=== PATIENT | female | born 1955 | race Caucasian/White ===

== ENCOUNTER 2017-11-28 18:35 | Inpatient (IN) ==
[2017-11-28] MEDS ORDERED: Naloxone 0.4 MG/ML INJ IVP PRN ×2 (19:31→21:37)
--- NOTE | 2017-11-28 21:23 | Internal Med History&Physical ---
<Martin Perez - Last Filed: 11/28/17 23:49> Date of Encounter: 11/28/17 Time of Encounter: 21:21 Internal Medicine - H&P: HPI Chief complaint: Melena Admitted From: Emergency Dept Plans for Post Hospital Care: Home History of present illness: Ms. 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 She states she had esophageal variceal banding done 5 days ago at [facility] and has had melanotic stools since then. She was supposed to follow-up on but was unable to make her appointment. She states this is new for her, she never had anything like this. She reports intermittent dizziness but denies near syncope or syncope. She states she has had occasional episodes of nausea. She reports weight gain in feeling that she has extra fluid on her belly. She has been told she has fluid in her belly previously but has never had paracentesis, this has always been treated with Lasix. She denies any abdominal pain, vomiting, hematemesis, hematochezia. Patient reports mild burning with urination. She denies any fever, chills, chest pain, shortness of breath. Past Med Surg Social Fam HX - Past Medical History Medical history: diabetes, hypertension Additional medical history: CIRRHOSIS. DEPRESSION. ANXIETY. ESOPHAGEAL VARICES. HTN. HIGH LIPIDS. DM II. GERD Psychiatric history: anxiety, depression - Past Surgical History Surgical History: cancer surgery, cholecystectomy, YOVANI/BSO Additional surgical history: T&A. UPPER AND LOWER SCOPES. FINGER CYST REMOVAL - Social History Smoking Status: Current every day smoker Smokeless Tobacco Status: No Alcohol use: occasionally Drug use: none Internal Medicine - H&P: Meds LORazepam [Ativan] 1 mg PO BID 11/01/15 [History] Valsartan/Hydrochlorothiazide [Diovan Hct 320-12.5 mg Tab] 0.5 tab PO DAILY 03/17 [History] Citalopram Hydrobromide [Citalopram HBr] 20 mg PO DAILY 05/19/17 [History] Pantoprazole Sodium 40 mg PO DAILY 05/19/17 [History] Relion N 45 units SQ BID 05/19/17 [History] Relion R 15 unit SQ TID PRN 05/19/17 [History] Loratadine [Allergy Relief] 10 mg PO DAILY 05/25/17 [History] SUMAtriptan succinate [Imitrex] 25 mg PO AD PRN 05/25/17 [History] Venlafaxine XR (24 HR) [Effexor XR] 150 mg PO DAILY 05/25/17 [History] 3 Allergy/AdvReac Type Severity Reaction Status Date / Time omeprazole [From Prilosec] Allergy Diarrhea Verified 05/19/17 09:47 tetanus and diphtheria Allergy Rash Verified 05/19/17 09:47 toxoids [Tetanus&Diphtheria Toxoid] All Systems PM: A 10-system review of systems was performed and is negative for pertinent findings except as documented above in the HPI. - Constitutional Constitutional: no chills, no fever(s), no falls - EENT Eyes: no blurry vision, no change in vision Nose, mouth and throat: no sinus pain, no sore throat - Cardiovascular Cardiovascular ROS IM: no chest pain, no dyspnea, no irregular heart rhythm, no lightheadedness, no syncope - Respiratory Respiratory: no cough, no dyspnea, no hemoptysis - Gastrointestinal Gastrointestinal: melena, nausea (occasional), no abdominal pain, no diarrhea, no hematemesis, no hematochezia, no vomiting - Genitourinary Genitourinary: dysuria - Musculoskeletal Musculoskeletal ROS IM: no muscle cramps - Integumentary Integumentary IM: no erythema, no rash - Neurological Neurological ROS: dizziness, no confusion - Endocrine Endocrine IM: no polydipsia, no polyuria - Constitutional General appearance: Present: A&O X 3, pleasant, no acute distress Exam: Able to walk from squad cot to bed without difficulty - Head Head exam: Present: atraumatic, normal inspection, normocephalic - Eye Eye exam: Present: EOMI, PERRL - ENT ENT exam: Present: mucous membranes moist - Neck Neck exam general surgery: Present: full ROM, supple - Respiratory Respiratory exam: Present: CTAB. Absent: rales, rhonchi, wheezes - Cardiovascular Cardiovascular exam: Present: tachycardia (regular). Absent: diastolic murmur, irregular rhythm, systolic murmur - GI/Abdominal GI/Abdominal exam: Present: distended, normal bowel sounds, soft, no peritoneal signs. Absent: tenderness Additional comments: Positive fluid wave. - Extremities Exam Extremities exam: Present: pedal edema (trace), warm. Absent: tenderness - Neurological Exam Neurological exam: Present: alert, CN II-XII intact, oriented X3, no focal deficits - Psychiatric Psychiatric exam: Present: anxious Internal Med - H&P Results - Labs CBC & Chem 7: 11/28/17 21:33 11/28/17 21:33 - Assessment and plan (1) Upper gastrointestinal hemorrhage Current Visit: No Status: Acute Assessment and plan: Patient reports melanotic stools 5 days after esophageal banding on Thursday. Most recent hemoglobin was in August was 11.3, was 9.5 on presentation. Trend CBC every 6 hours. Transfusion hemoglobin less than 7 for massive hemorrhage. Continue Protonix drip. Start octrotide with bolus followed by infusion. Given her GI bleed with hx of varicies will start ceftriaxone 1gm q24h for SBP prophylaxis. Gastroenterology has been consulted. (2) Cirrhosis Current Visit: Yes Status: Acute Assessment and plan: Secondary to nonalcoholic steatohepatitis. On exam patient appears to have mild ascites. We will hold Lasix at this time due to concern for active bleeding. Patient currently follows with [facility] and Dr. Alfaro. Patient states she is currently being evaluated for transplant. Child Padgett A, meld 11. GI has been consulted. Qualifiers: Hepatic cirrhosis type: other cirrhosis Qualified Code(s): K74.69 - Other cirrhosis of liver (3) Esophageal varices determined by endoscopy Current Visit: Yes Status: Acute Assessment and plan: Patient reports endoscopy 5 days ago to [facility] were 5 varices were banded. Was supposed to have follow-up appointment on that she was unable to make. The last endoscopy we have was from 2015 that showed grade 2 varices. We will attempt to obtain records from [facility]. (4) Hypertension Current Visit: Yes Status: Acute Assessment and plan: Currently normotensive. We will hold antihypertensives due to concerns for active bleeding and risk of hypotension. Qualifiers: Hypertension type: essential hypertension Qualified Code(s): I10 - Essential (primary) hypertension (5) Anxiety Current Visit: Yes Status: Acute Assessment and plan: Patient takes lorazepam 1 mg by mouth twice a day at home. Patient is currently nothing by mouth, will make lorazepam 0.5 mg every 8 available on an as-needed basis. (6) Type II diabetes mellitus Current Visit: Yes Status: Acute Assessment and plan: Patient is on 70/30 mix at home with short acting insulin for meals. She is currently nothing by mouth. We will check blood sugars every 6 and cover with sliding scale insulin. Qualifiers: Diabetes mellitus nursing home insulin use: with nursing home use Diabetes mellitus complication status: with unspecified complications Qualified Code(s) : E11.8 - Type 2 diabetes mellitus with unspecified complications; Z79.4 - intermediate (current) use of insulin (7) DVT prophylaxis Current Visit: Yes Status: Acute Assessment and plan: Pharmacologic contraindicated due to concern for active bleeding. We will order EPCDs (8) Dysuria Current Visit: Yes Status: Acute Assessment and plan: Patient reports mild dysuria. We will check UA. - Time Spent With Patient Total time spent is greater than 50% in coordination of care (as documented) at patient's floor/unit and/or counseling patient: <Tawny Tamayo - Last Filed: 11/29/17 07:43> Date of Encounter: 11/29/17 Time of Encounter: 01:00 Internal Medicine - H&P: HPI History of present illness: Ms. Reno is a 62 year old female All Systems PM: A 10-system review of systems was performed and is negative for pertinent findings except as documented above in the HPI. - Constitutional Vitals: Temp Pulse Resp BP Pulse Ox 98.3 F 102 18 128/69 96 11/29/17 07:34 11/29/17 07:34 11/29/17 07:34 11/29/17 07:34 11/29/17 07:34 Internal Med - H&P Results - Labs CBC & Chem 7: 11/29/17 03:13 11/29/17 03:13 Labs: Short CBC 11/28/17 11/29/17 Range/Units 21:33 03:13 WBC 3.9 L 2.9 L (4.3-11.1) K/mcL Hgb 10.0 L 9.1 L (11.5-15.4) g/dL Hct 32.2 L 29.4 L (35.3-44.9) % Plt Count 75 L 64 L (140-400) K/mcL Neutrophils # 2.9 2.0 (1.6-8.9) K/mcL BMP 11/28/17 11/29/17 21:33 03:13 Sodium 136 138 Potassium 4.1 4.2 Chloride 106 108 H Carbon Dioxide 26 26 BUN 23 21 Creatinine 0.96 0.84 Glucose 168 H 115 H Calcium 9.1 8.9 Liver Function 11/28/17 Range/Units 21:33 Total Bilirubin 1.6 H (0.3-1.0) mg/dL Direct Bilirubin 0.4 H (0.0-0.2) mg/dL AST 38 (13-39) Units/L ALT 21 (7-52) Units/L Alkaline Phosphatase 133 H (34-104) Units/L Albumin 3.4 L (3.5-5.7) g/dL Urine 11/28/17 Range/Units 23:39 Urine Color Yellow (Yellow) Urine Clarity Clear (Clear) Urine pH 6.0 (5.0-8.0) pH Units Ur Specific [place] 1.020 (1.010-1.025) Urine Protein Negative (Neg-Trace) mg/dL Urine Glucose (UA) Normal (Normal) mg/dL - Assessment and plan (1) Upper gastrointestinal hemorrhage Current Visit: No Status: Inactive (2) Cirrhosis Current Visit: Yes Status: Acute Qualifiers: Hepatic cirrhosis type: other cirrhosis Qualified Code(s): K74.69 - Other cirrhosis of liver (3) Esophageal varices determined by endoscopy Current Visit: Yes Status: Acute (4) Hypertension Current Visit: Yes Status: Acute Qualifiers: Hypertension type: essential hypertension Qualified Code(s): I10 - Essential (primary) hypertension (5) Anxiety Current Visit: Yes Status: Acute (6) Type II diabetes mellitus Current Visit: Yes Status: Acute Qualifiers: Diabetes mellitus nursing home admissions director insulin use: with nursing home use Diabetes mellitus complication status: with unspecified complications Qualified Code(s) : E11.8 - Type 2 diabetes mellitus with unspecified complications; Z79.4 - intermediate (current) use of insulin (7) DVT prophylaxis Current Visit: Yes Status: Acute (8) Dysuria Current Visit: Yes Status: Acute - Time Spent With Patient Total time spent is greater than 50% in coordination of care (as documented) at patient's floor/unit and/or counseling patient: - Attending Attestation Patient seen and examined. Case discussed with resident. Agree with assessment and plan. Patient hemodynamically stable. H/H stable. We will start patient on antibiotic prophylaxis due to suspicion for variceal bleed. Octreotide infusion. Serial h/h.
[2017-11-28 21:54] LABS: Basophils % 0.8 %; Red Cell Distribution Width 16.1 % (11.5-14.5)
[2017-11-28] MEDS ORDERED: Dextrose Gel 15 GM/37.5 ML TUBE PO PRN ×2 (21:54)
[2017-11-28] MEDS ORDERED: D5% in Water 1,000 ML IVC PRN (21:54)
[2017-11-28] MEDS ORDERED: *HR* Dextrose 50 % in Water (Syg) 50 ML SYRINGE IVP PRN (21:54)
[2017-11-28 21:55] LABS: Eosinophils # 0.1 K/mcL (0.0-0.6); Eosinophils % 3.3 %; Hematocrit 32.2 % (35.3-44.9); Immature Granulocytes % 0.3 % (0-4); Immature Platelets 5.1 % (1.1-6.1); Lymphocytes # 0.5 K/mcL (0.6-4.6); Lymphocytes % 11.8 %; Mean Corpuscular HGB Conc 31.1 g/dL (31.6-35.5); Mean Corpuscular Hemoglobin 27.4 pg (28.0-33.3); Mean Corpuscular Volume 88.2 fL (83.0-100.0); Mean Platelet Volume 10.6 fL (9.4-12.4); Monocytes # 0.4 K/mcL (0.0-1.3); Monocytes % 10.3 %; Neutrophils # 2.9 K/mcL (1.6-8.9); Red Blood Count 3.65 M/mcL (3.82-4.97); Segmented Neutrophils % 73.5 %
[2017-11-28] MEDS ORDERED: *HR* LORazepam 2 MG/ML VIAL IVP PRN (21:57)
[2017-11-28 21:58] LABS: Platelet Count 75 K/mcL (140-400)
[2017-11-28 22:03] LABS: Alanine Aminotransferase 21 Units/L (7-52); Albumin 3.4 g/dL (3.5-5.7); Alkaline Phosphatase 133 Units/L (34-104); Aspartate Amino Transferase 38 Units/L (13-39); BUN/Creatinine Ratio 24 (6-26); Bilirubin,Direct 0.4 mg/dL (0.0-0.2); Bilirubin,Indirect 1.2 mg/dL (0.0-1.2); Bilirubin,Total 1.6 mg/dL (0.3-1.0); Blood Urea Nitrogen 23 mg/dL (8-23); Calcium 9.1 mg/dL (8.6-10.3); Carbon Dioxide 26 mEq/L (23-29); Chloride 106 mEq/L (98-107); Globulin 3.4 g/dL (2.4-3.5); Glucose 168 mg/dL (70-105); Osmolality,Calculated 290 (280-300); Potassium 4.1 mEq/L (3.5-5.1); Sodium 136 mEq/L (136-145); Total Protein 6.8 g/dL (6.4-8.9); eGFR For Non-African Americans 59 (> 60)
[2017-11-28] MEDS: Pantoprazole 40 MG in 0.9 % Sodium Chloride Mini Bag 100 ML IVC SCH ×2 (22:58→23:46)
[2017-11-28] MEDS ORDERED: Octreotide 50 MCG/ML SYRINGE IVP ONE (23:24)
[2017-11-28] MEDS ORDERED: Octreotide 400 MCG in 0.9 % Sodium Chloride 100 ML IVC SCH (23:30)
[2017-11-28 23:45] LABS: Bilirubin,Urine Negative (Negative); Blood,Urine Negative (Negative); Clarity,Urine Clear (Clear); Color,Urine Yellow (Yellow); Glucose,Urine (UA) Normal (Normal); Ketones,Urine Negative (Negative); Leukocyte Esterase,Urine Small (Negative); Nitrite,Urine Negative (Negative); Protein,Urine Negative (Neg-Trace); Urobilinogen,Urine Normal (Normal)
[2017-11-28] MEDS ORDERED: cefTRIAXone 1,000 MG in 0.9 % Sodium Chloride Mini Bag 100 ML IVPB SCH (23:45)
[2017-11-28 23:46] LABS: Bacteria,Urine None Seen per hpf (None-Few); Hyaline Casts,Urine None Seen per lpf (None-Few); Squamous Epithelial Cell,Urine Many per lpf (None-Few); WBC,Urine 0-3 per hpf (0-3)
[2017-11-29 03:25] LABS: Basophils % 0.7 %; Eosinophils # 0.1 K/mcL (0.0-0.6); Eosinophils % 4.1 %; Hematocrit 29.4 % (35.3-44.9); Hemoglobin 9.1 g/dL (11.5-15.4); Immature Platelets 4.4 % (1.1-6.1); Lymphocytes # 0.4 K/mcL (0.6-4.6); Mean Corpuscular Hemoglobin 27.2 pg (28.0-33.3); Mean Corpuscular Volume 87.8 fL (83.0-100.0); Mean Platelet Volume 11.2 fL (9.4-12.4); Monocytes # 0.4 K/mcL (0.0-1.3); Monocytes % 11.9 %; Red Blood Count 3.35 M/mcL (3.82-4.97); Red Cell Distribution Width 16.1 % (11.5-14.5); Segmented Neutrophils % 68.3 %
[2017-11-29 03:28] LABS: INR 1.3; Prothrombin Time 14.3 Seconds (9.4-12.1)
[2017-11-29 03:33] LABS: Platelet Count 64 K/mcL (140-400)
[2017-11-29 03:42] LABS: BUN/Creatinine Ratio 25 (6-26); Blood Urea Nitrogen 21 mg/dL (8-23); Calcium 8.9 mg/dL (8.6-10.3); Carbon Dioxide 26 mEq/L (23-29); Chloride 108 mEq/L (98-107); Glucose 115 mg/dL (70-105); Magnesium 1.9 mg/dL (1.6-2.6); Osmolality,Calculated 290 (280-300); Potassium 4.2 mEq/L (3.5-5.1); Sodium 138 mEq/L (136-145); eGFR For Non-African Americans > 60 (> 60)
[2017-11-29] MEDS: Pantoprazole 40 MG in 0.9 % Sodium Chloride Mini Bag 100 ML IVC SCH ×5 (04:42→20:45)
[2017-11-29] MEDS ORDERED: Dextrose Gel 15 GM/37.5 ML TUBE PO PRN ×2 (04:50)
[2017-11-29] MEDS ORDERED: D5% in Water 1,000 ML IVC PRN (04:50)
[2017-11-29] MEDS ORDERED: *HR* Dextrose 50 % in Water (Syg) 50 ML SYRINGE IVP PRN (04:50)
[2017-11-29] MEDS ORDERED: *HR* LORazepam 2 MG/ML VIAL IVP PRN (04:50)
[2017-11-29] MEDS ORDERED: Naloxone 0.4 MG/ML INJ IVP PRN (04:50)
[2017-11-29] MEDS: Octreotide 400 MCG in 0.9 % Sodium Chloride 100 ML IVC SCH ×2 (05:01→20:47)
[2017-11-29] MEDS ORDERED: Insulin LISPRO 300 UNITS/3 ML VIAL SQ SCH ×3 (06:00→21:00)
[2017-11-29 08:20] LABS: Hematocrit 29.9 % (35.3-44.9); Hemoglobin 9.3 g/dL (11.5-15.4)
--- NOTE | 2017-11-29 08:33 | Anesthesia Evaluation PreOp ---
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 Being evaluated for possible liver transplant.), Diabetes Type II , GERD, Other (Underwent EGD/banding at [facility] 5 days ago. Has had melanotic stools cince.) Anesthesia History: No Prior Anesthetic Complications Alcohol Use: occasionally Drug use: none Medications and Allergies LORazepam [Ativan] 1 mg PO BID 11/01/15 [History] Citalopram Hydrobromide [Citalopram HBr] 20 mg PO DAILY 05/19/17 [History] Pantoprazole Sodium 40 mg PO DAILY 05/19/17 [History] Loratadine [Allergy Relief] 10 mg PO DAILY 05/25/17 [History] SUMAtriptan succinate [Imitrex] 25 mg PO AD PRN 05/25/17 [History] Venlafaxine XR (24 HR) [Effexor XR] 150 mg PO DAILY 05/25/17 [History] Furosemide [Lasix] 40 mg PO DAILY 11/29/17 [History] Insulin NPH Human Isophane [Novolin N] 45 unit SQ BID 11/29/17 [History] Insulin Regular, Human [Novolin R] 10 unit SQ TIDWM 11/29/17 [History] Spironolactone [Spironolactone] 100 mg PO DAILY 11/29/17 [History] 3 Allergy/AdvReac Type Severity Reaction Status Date / Time omeprazole [From Prilosec] Allergy Diarrhea Verified 05/19/17 09:47 tetanus and diphtheria Allergy Rash Verified 05/19/17 09:47 toxoids [Tetanus&Diphtheria Toxoid] - Meds/Allergy Pre-op Review Medications Reviewed: Yes Allergies Reviewed: Yes Beta Blockers on Current Med List: No Anesthesia Results - Labs 11/29/17 08:03 11/29/17 03:13 - Imaging EKG: report reviewed, image reviewed (sinus rhythm with RBBB and L ant. fasc. block) Anesthesia Exam Selected Entries 11/29/17 07:34 Temperature 98.3 F Pulse Rate 102 Respiratory Rate 18 Blood Pressure 128/69 O2 Sat by Pulse Oximetry 96 Laboratory Tests 11/29/17 11/29/17 11/29/17 03:13 03:13 03:13 Hgb 9.1 L Hct 29.4 L Plt Count 64 L PT 14.3 H INR 1.3 Sodium 138 Potassium 4.2 Chloride 108 H Carbon Dioxide 26 - HEENT Pupil (Motor): Pupils equal Mallampati: I Teeth: Edentulous Oral Opening: Greater than 3 (Discussed MAC anesthesia. Agreed to proceed.) - Cardiac Rhythm: Regular Murmur: None - Pulmonary Breath Sounds: bilateral Clear Respiratory Effort: Symmetrical Anesthesia Assess/Plan ASA Score: 4 Modified [place] Scale for Level of Consciousness: Cooperative, oriented, and tranquil Anesthetic Plan: MAC Monitoring Plan: Standard Monitors Recovery Plan: Other (Discussed MAC anesthesia, agreed to proceed.)
[2017-11-29] MEDS ORDERED: Lidocaine -MPF 2% 2 ML VIAL ONE (09:43)
[2017-11-29] MEDS ORDERED: *HR* Propofol 200 MG/20 ML VIAL IVP ONE (09:43)
[2017-11-29] MEDS: Ringers Solution, Lactated 1,000 ML IVC SCH (10:17)
--- NOTE | 2017-11-29 10:27 | Gastroenterology Consult Note ---
Date of Encounter: 11/29/17 Time of Encounter: 08:35 - Assessment and plan (1) Cirrhosis Status: Acute Qualifiers: Hepatic cirrhosis type: other cirrhosis Qualified Code(s): K74.69 - Other cirrhosis of liver (2) Esophageal varices determined by endoscopy Status: Acute - Time Spent With Patient Total time spent is greater than 50% in coordination of care (as documented) at patient's floor/unit and/or counseling patient: 25 - 35 minutes GI History of Present Illness - Data of Consult Patient: known to practice within the last 3 years Consult date: 11/29/17 Requesting Physician: Christiano Pace DO - Consult Narrative Reason for consult: Anemia and history of melena History of present illness: Ms. Reno is a 62 year old female who presented at [place] with hx of melena , shortness of breath and hx of esophageal varices. She had been banded most recently at [facility] (4 bands in September 2017). Hemoglobin was 9.5 gm% at [place] and 9.1 here. Plan EGD with banding of Eso varices today. Past Med Surg Social Fam HX - Past Medical History Medical history: cirrhosis, diabetes, GERD, GI bleed, hypertension, liver disease Additional medical history: CIRRHOSIS. DEPRESSION. ANXIETY. ESOPHAGEAL VARICES. HTN. HIGH LIPIDS. DM II. GERD Psychiatric history: anxiety, depression - Past Surgical History Surgical History: cancer surgery, cholecystectomy, YOVANI/BSO Additional surgical history: T&A. UPPER AND LOWER SCOPES. FINGER CYST REMOVAL - Social History Smoking Status: Current every day smoker Smokeless Tobacco Status: No Alcohol use: occasionally Drug use: none - Gastrointestinal Gastrointestinal: Present: melena - Constitutional Constitutional: as per HPI, fatigue - Cardiovascular Cardiovascular ROS: Present: as per HPI - Respiratory Respiratory IM: Present: dyspnea - Neurological ROS Neurological GI: Present: as per HPI - Integumentary Integumentary GI: Present: as per HPI - Psychiatric ROS Psychiatric GI: Present: as per HPI - Endocrine Endocrine IM: Present: as per HPI - Constitutional Vitals: Temp Pulse Resp BP Pulse Ox 98.3 F 100 18 121/76 97 11/29/17 07:34 11/29/17 10:16 11/29/17 10:16 11/29/17 10:16 11/29/17 10:16 - Head Head exam: Present: atraumatic, normal inspection, normocephalic - Eye Eye exam: Present: EOMI, PERRL Additional comments: Pallor - GI/Abdominal GI/Abdominal exam: Present: normal bowel sounds, soft, no peritoneal signs - Rectal Rectal exam: Present: heme (+) stool - Extremities Exam Extremities exam: Present: full ROM, normal inspection - Neurological Exam Neurological exam: Present: CN II-XII intact, oriented X3 Results - Labs CBC & Chem 7: 11/30/17 10:41 11/29/17 03:13 Labs: Last Result Calcium 8.9 mg/dL (8.6-10.3) 11/29/17 03:13 Entire Visit Hgb 9.3 g/dL (11.5-15.4) L 11/29/17 08:03 Hct 29.9 % (35.3-44.9) L 11/29/17 08:03 PT 14.3 Seconds (9.4-12.1) H 11/29/17 03:13 Total Bilirubin 1.6 mg/dL (0.3-1.0) H 11/28/17 21:33 AST 38 Units/L (13-39) 11/28/17 21:33 ALT 21 Units/L (7-52) 11/28/17 21:33 - ABG ABG results: PT/INR, D-dimer PT 14.3 Seconds (9.4-12.1) H 11/29/17 03:13 - Diagnostic Studies CT scan - abdomen Status: image reviewed by me Consult Discharge Plan - Plan Instructions: Cirrhosis (DC), Diabetes Mellitus Type 2 in Adults (DC), Chronic Hypertension (DC), Esophageal Varices (DC), Anxiety (DC) Referrals: Anant Amador MD [Partnered Physician] - (sent web request on 11-30-17 @ 0911) Chente Davis DO [Primary Care Provider] - (sent web request on 11-30-17 @ 0909)
--- NOTE | 2017-11-29 11:55 | Internal Med Progress Note ---
Hospitalist Progress Note - Encounter Date of Encounter: 11/29/17 Time of Encounter: 11:52 - Subjective Interval History: Patient is a 62 F with cirrhosis and varicies presented for melena. She had recent esophageal banding recently at [facility]. Patient has returned from EGD. She denies CP, SOB, dizziness, n/v, abdominal pain. States she is hungry. - Exam Vitals: Temp Pulse Resp BP Pulse Ox 98.3 F 100 18 121/76 97 11/29/17 07:34 11/29/17 10:16 11/29/17 10:16 11/29/17 10:16 11/29/17 10:16 Exam: Gen: NAD CVS: RRR Lungs: CTAB Abd: soft, nt/nd, normal bowel sounds, no rigidity, no guarding. Ext: trace bipedal edema. - Assessment and Plan (1) Upper gastrointestinal hemorrhage Current Visit: No Status: Inactive Assessment and Plan: Patient reports melanotic stools 5 days after esophageal banding on Thursday. Most recent hemoglobin was in August was 11.3, was 9.5 on presentation. Trend CBC every 6 hours. Transfusion hemoglobin less than 7 for massive hemorrhage. Continue Protonix drip. Start octrotide with bolus followed by infusion. Given her GI bleed with hx of varicies will start ceftriaxone 1gm q24h for SBP prophylaxis. Gastroenterology has been consulted. 11/29: status post EGD. Hemodynamically stable. No acute distress. Cycle H&H, appreciate GI recs. (2) Cirrhosis Current Visit: Yes Status: Acute Assessment and Plan: Secondary to nonalcoholic steatohepatitis. On exam patient appears to have mild ascites. We will hold Lasix at this time due to concern for active bleeding. Patient currently follows with [facility] and Dr. Alfaro. Patient states she is currently being evaluated for transplant. Child Padgett A, meld 11. GI has been consulted. (3) Esophageal varices determined by endoscopy Current Visit: Yes Status: Acute Assessment and Plan: Patient reports endoscopy 5 days ago to [facility] were 5 varices were banded. Was supposed to have follow-up appointment on that she was unable to make. The last endoscopy we have was from 2016 that showed grade 2 varices. We will attempt to obtain records from [facility]. 11/29: EGD done and patient just returned. GI following, appreciate recommendations. (4) Hypertension Current Visit: Yes Status: Acute Assessment and Plan: Currently normotensive. We will hold antihypertensives due to concerns for active bleeding and risk of hypotension. (5) Anxiety Current Visit: Yes Status: Acute Assessment and Plan: Patient takes lorazepam 1 mg by mouth twice a day at home. Patient is currently nothing by mouth, will make lorazepam 0.5 mg every 8 available on an as-needed basis. (6) Type II diabetes mellitus Current Visit: Yes Status: Acute Assessment and Plan: Patient is on 70/30 mix at home with short acting insulin for meals. Resume insulin since she now is eating. (7) DVT prophylaxis Current Visit: Yes Status: Acute Assessment and Plan: Pharmacologic contraindicated due to concern for active bleeding. We will order EPCDs (8) Dysuria Current Visit: Yes Status: Acute Assessment and Plan: Patient reports mild dysuria. We will check UA. - Time Spent with Patient Total time spent is greater than 50% in coordination of care (as documented) at patient's floor/unit and/or counseling patient: Internal Medicine: Result - Labs CBC & Chem 7: 11/29/17 08:03 11/29/17 03:13 Labs: Short CBC 11/28/17 11/29/17 11/29/17 Range/Units 21:33 03:13 08:03 WBC 3.9 L 2.9 L (4.3-11.1) K/mcL Hgb 10.0 L 9.1 L 9.3 L (11.5-15.4) g/dL Hct 32.2 L 29.4 L 29.9 L (35.3-44.9) % Plt Count 75 L 64 L (140-400) K/mcL Neutrophils # 2.9 2.0 (1.6-8.9) K/mcL BMP 11/28/17 11/29/17 21:33 03:13 Sodium 136 138 Potassium 4.1 4.2 Chloride 106 108 H Carbon Dioxide 26 26 BUN 23 21 Creatinine 0.96 0.84 Glucose 168 H 115 H Calcium 9.1 8.9 Liver Function 11/28/17 Range/Units 21:33 Total Bilirubin 1.6 H (0.3-1.0) mg/dL Direct Bilirubin 0.4 H (0.0-0.2) mg/dL AST 38 (13-39) Units/L ALT 21 (7-52) Units/L Alkaline Phosphatase 133 H (34-104) Units/L Albumin 3.4 L (3.5-5.7) g/dL Urine 11/28/17 Range/Units 23:39 Urine Color Yellow (Yellow) Urine Clarity Clear (Clear) Urine pH 6.0 (5.0-8.0) pH Units Ur Specific [place] 1.020 (1.010-1.025) Urine Protein Negative (Neg-Trace) mg/dL Urine Glucose (UA) Normal (Normal) mg/dL - ABG Interpretation ABG results: PT/INR, D-dimer PT 14.3 Seconds (9.4-12.1) H 11/29/17 03:13 Consult Discharge Plan - Plan Referrals: Chente Davis DO [Primary Care Provider] - (2) Cirrhosis Qualifiers: Hepatic cirrhosis type: other cirrhosis Qualified Code(s): K74.69 - Other cirrhosis of liver (4) Hypertension Qualifiers: Hypertension type: essential hypertension Qualified Code(s): I10 - Essential (primary) hypertension (6) Type II diabetes mellitus Qualifiers: Diabetes mellitus care home insulin use: with care home use Diabetes mellitus complication status: with unspecified complications Qualified Code(s) : E11.8 - Type 2 diabetes mellitus with unspecified complications; Z79.4 - residential (current) use of insulin
[2017-11-29] MEDS ORDERED: SUMAtriptan succinate 25 MG TABLET PO PRN (11:58)
[2017-11-29] MEDS: Insulin LISPRO 300 UNITS/3 ML VIAL SQ SCH ×2 (13:55→16:42)
[2017-11-29] MEDS: *HR* LORazepam 1 MG TABLET PO SCH (20:47)
[2017-11-29] MEDS ORDERED: cefTRIAXone 1,000 MG in 0.9 % Sodium Chloride Mini Bag 100 ML IVPB SCH (23:45)
[2017-11-30] MEDS: Pantoprazole 40 MG in 0.9 % Sodium Chloride Mini Bag 100 ML IVC SCH ×3 (02:28→08:18)
[2017-11-30 04:02] LABS: Mean Platelet Volume 10.6 fL (9.4-12.4)
[2017-11-30 04:03] LABS: Basophils % 1.1 %; Eosinophils # 0.1 K/mcL (0.0-0.6); Hematocrit 29.5 % (35.3-44.9); Immature Granulocytes % 0.5 % (0-4); Lymphocytes # 0.3 K/mcL (0.6-4.6); Lymphocytes % 16.8 %; Mean Corpuscular HGB Conc 30.5 g/dL (31.6-35.5); Mean Corpuscular Hemoglobin 26.9 pg (28.0-33.3); Mean Corpuscular Volume 88.3 fL (83.0-100.0); Monocytes # 0.3 K/mcL (0.0-1.3); Monocytes % 14.6 %; Neutrophils # 1.1 K/mcL (1.6-8.9); Red Blood Count 3.34 M/mcL (3.82-4.97); Red Cell Distribution Width 16.3 % (11.5-14.5)
[2017-11-30 04:17] LABS: Platelet Count 59 K/mcL (140-400)
[2017-11-30 05:47] LABS: Platelet Estimate Decreased (Normal)
[2017-11-30 05:48] LABS: Anisocytosis 1+ (Not Present)
[2017-11-30] MEDS: Ringers Solution, Lactated 1,000 ML IVC SCH (07:56)
[2017-11-30] MEDS: Insulin LISPRO 300 UNITS/3 ML VIAL SQ SCH ×2 (08:19→11:57)
[2017-11-30] MEDS: *HR* LORazepam 1 MG TABLET PO SCH (08:19)
[2017-11-30] MEDS ORDERED: Loratadine 10 MG TABLET PO SCH (09:00)
[2017-11-30] MEDS ORDERED: Furosemide 40 MG TABLET PO SCH (09:00)
[2017-11-30] MEDS ORDERED: Venlafaxine XR (24 HR) 150 MG CAP.ER.24H PO SCH (09:00)
--- NOTE | 2017-11-30 09:44 | Discharge Summary ---
- NOTES TO OUTPATIENT PROVIDER Notes to Outpatient Provider: - She is to Follow-up with GI as instructed in 4 weeks. - Repeat H&H in 3 days. - I highly suggest doing a sleep study as outpatient. Orders not resulted at time of discharge: Pending orders 12/01/17 04:00 Complete Blood Count [HEME] AM 0400 12/02/17 04:00 Complete Blood Count [HEME] AM 0400 12/03/17 04:00 Complete Blood Count [HEME] AM 0400 Date of Encounter: 11/30/17 Time of Encounter: 09:41 - Discharge Diagnosis (1) Upper gastrointestinal hemorrhage Priority: Primary Status: Inactive (2) Cirrhosis Priority: Secondary Status: Acute Qualifiers: Hepatic cirrhosis type: other cirrhosis Qualified Code(s): K74.69 - Other cirrhosis of liver (3) Esophageal varices determined by endoscopy Priority: Secondary Status: Acute (4) Hypertension Priority: Secondary Status: Acute Qualifiers: Hypertension type: essential hypertension Qualified Code(s): I10 - Essential (primary) hypertension (5) Anxiety Priority: Secondary Status: Acute (6) Type II diabetes mellitus Priority: Secondary Status: Acute Qualifiers: Diabetes mellitus shelter insulin use: with shelter use Diabetes mellitus complication status: with unspecified complications Qualified Code(s) : E11.8 - Type 2 diabetes mellitus with unspecified complications; Z79.4 - long term (current) use of insulin (7) DVT prophylaxis Priority: Secondary Status: Acute (8) Dysuria Priority: Secondary Status: Acute Hospital course: Ms. 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 She states she had esophageal variceal banding done 5 days ago at [facility] and has had melanotic stools since then. She was supposed to follow-up on but was unable to make her appointment. She states this is new for her, she never had anything like this. She reports intermittent dizziness but denies near syncope or syncope. She states she has had occasional episodes of nausea. She reports weight gain in feeling that she has extra fluid on her belly. She has been told she has fluid in her belly previously but has never had paracentesis, this has always been treated with Lasix. She denies any abdominal pain, vomiting, hematemesis, hematochezia. Patient reports mild burning with urination. Patient reports melanotic stools 5 days after esophageal banding on Thursday. Most recent hemoglobin was in August was 11.3, was 9.5 on presentation. Hemoglobin/Hematocrit were trended. She was started on a Protonix drip and Octreotide drip, and ceftriaxone as SBP prophylaxis. GI consulted and she had EGD on with esophageal banding. Patient remained hemodynamically stable and was discharged to follow-up with GI in 4 weeks. - Time Spent with Patient Total time spent providing and/or coordinating discharge services: - Discharge Medications Home Medications: LORazepam [Ativan] 1 mg PO BID 11/01/15 [History] Citalopram Hydrobromide [Citalopram HBr] 20 mg PO DAILY 05/19/17 [History] Pantoprazole Sodium 40 mg PO DAILY 05/19/17 [History] Loratadine [Allergy Relief] 10 mg PO DAILY 05/25/17 [History] SUMAtriptan succinate [Imitrex] 25 mg PO AD PRN 05/25/17 [History] Venlafaxine XR (24 HR) [Effexor Xr] 150 mg PO DAILY 05/25/17 [History] Furosemide [Lasix] 40 mg PO DAILY 11/29/17 [History] Insulin NPH Human Isophane [Novolin N] 45 unit SQ BID 11/29/17 [History] Insulin Regular, Human [Novolin R] 10 unit SQ TIDWM 11/29/17 [History] Spironolactone 100 mg PO DAILY 11/29/17 [History] Allergies/Adverse Reactions: 3 Allergy/AdvReac Type Severity Reaction Status Date / Time omeprazole [From Prilosec] Allergy Diarrhea Verified 05/19/17 09:47 tetanus and diphtheria Allergy Rash Verified 05/19/17 09:47 toxoids [Tetanus&Diphtheria Toxoid] Date of admission: 11/28/17 21:05 Primary care physician: Chente Davis DO Consults: 11/28/17 19:31 Consult to Gastroenterology [CONS] Routine Consulting Provider: [facility] [place] Reason for Consult: Upper GI, hx of varicies Call Completed: Yes Discharging clinician: Reva Carney - Constitutional Vitals: Temp Pulse Resp BP Pulse Ox 98.0 F 95 18 135/77 93 10/01/18 07:17 11/30/17 07:17 11/30/17 07:17 11/30/17 07:17 11/30/17 07:17 General appearance: Present: A&O X 3, pleasant, no acute distress Exam: Gen: NAD CVS: RRR Lungs: CTAB Abd: soft, nt/nd, normal bowel sounds, no rigidity, no guarding. Ext: trace bipedal edema. - Patient Status Disposition: Home, Self-Care Condition: Undetermined Functional capacity at discharge: independent ambulation Overall status at discharge: patient is progressing back to baseline - Discharge Instructions Follow Up With: Chente Davis DO [Primary Care Provider] - - Diet and Activity Activity: increase activity as tolerated Diet: advance to your usual diet
[2017-11-30 11:14] LABS: Hematocrit 29.5 % (35.3-44.9)
[2017-11-30 11:43] VITALS: BP 120/80
== END 2017-11-30 13:19 | disposition home or self-care (01) | DRG 369 ==
LOC: ICNU 21:05 → 2NNU 11-29 05:35
PROVIDERS: ADMIT Internal Medicine; ATTEND Internal Medicine

== ENCOUNTER 2018-06-28 16:16 | Inpatient (IN) ==
--- NOTE | 2018-06-28 16:35 | Emergency Department Note ---
Disposition Clinical Impression: NSTEMI (non-ST elevated myocardial infarction), Hyperammonemia Altered mental status Qualifiers: Altered mental status type: transient alteration of awareness Qualified Code(s): R40.4 - Transient alteration of awareness Disposition: Admitted As Inpatient Condition: Fair Forms: ED Satisfaction Letter Time of Disposition: 18:16 Altered Mental Status HPI - General Chief Complaint: ED Altered Mental Status Stated Complaint: AMS Time Seen by Provider: 06/28/18 16:23 Source: patient, family (), EMS Mode of arrival: EMS Limitations: no limitations Nursing Notes Reviewed: Yes Vital Signs Reviewed: Yes - History of Present Illness HPI Narrative: 63-year-old female history of liver cirrhosis, hypertension, diabetes presents to the emergency department via EMS for altered mental status and slurred speech. is also present. Patient is a resident at [facility]. She has been there for over the past several months after a fall resulting in hip and shoulder fracture. She states recently she is been having more discomfort in her extremities likely due to her physical therapy and typically it is treated with more pain medications. Patient and are not sure why they are here. EMS reports the nursing facility stated that she is more lethargic and had slurred speech. Her last well-known reportedly was at no on. On arrival here patient believes it is due to her pain medications as well as her just waking up that made her seen altered. She is completely with and answering questions appropriately. She also states that they recently checked her ammonia level which was 43. She denies any complaints at this time such as chest pain, shortness of breath, nausea, vomiting, headache, visual changes. At this time we will attempt to contact the nursing facility for further information. Her blood glucose per squad was 182. We will get a CT had labs a urine and ammonia level. MD complaint: altered mental status, decreased responsiveness - Related Data Home Medications Medication Instructions Recorded Confirmed Pantoprazole Sodium 20 mg PO DAILY@0730 05/19/17 04/14/18 Loratadine [Allergy Relief] 10 mg PO DAILY 05/25/17 04/14/18 SUMAtriptan succinate [Imitrex] 25 mg PO Q2H PRN 05/25/17 04/14/18 Venlafaxine XR (24 HR) [Effexor Xr] 150 mg PO DAILY 05/25/17 04/14/18 Furosemide [Lasix] 40 mg PO DAILY 11/29/17 04/14/18 Insulin NPH Human Isophane 45 unit SQ 0730,1630 11/29/17 04/14/18 [Novolin N] Insulin Regular, Human [Novolin R] 10 unit SQ TIDWM 11/29/17 04/14/18 Spironolactone 100 mg PO DAILY 11/29/17 04/14/18 Lactulose 45 ml PO BID 04/05/18 04/14/18 Propranolol [Inderal] 30 mg PO BID 04/05/18 04/14/18 Rifaximin [Xifaxan] 500 mg PO BID 04/05/18 04/14/18 Citalopram Hydrobromide 30 mg PO DAILY 04/06/18 04/14/18 [Citalopram HBr] Metoprolol [Lopressor] 12.5 mg PO BID 04/06/18 04/14/18 Cyclobenzaprine [Flexeril] 5 mg PO Q6H PRN 04/14/18 04/14/18 Previous Rx's Medication Instructions Recorded Rivaroxaban [Xarelto] 10 mg PO 1700 #25 tablet 04/09/18 Allergies Allergy/AdvReac Type Severity Reaction Status Date / Time tetanus and diphtheria Allergy Rash Verified 04/14/18 10:59 toxoids [Tetanus&Diphtheria Toxoid] omeprazole [From Prilosec] AdvReac Diarrhea Verified 04/14/18 13:48 All systems ED: reviewed and negative except as stated. Review of Systems: As Per HPI Constitutional: Denies: fever, chills ENT ED: Denies: congestion Cardiovascular: Denies: chest pain Respiratory: Reports: cough. Denies: dyspnea Gastrointestinal: Denies: abdominal pain, nausea, vomiting Genitourinary: Denies: urgency, dysuria Musculoskeletal: Reports: arthralgia Integumentary: Denies: rash, abrasion Neurological: Denies: headache, weakness, numbness, confusion Past Medical History - Past Medical History Attestation: Yes The following information was validated with the patient. Source: patient Medical history: Reports: cirrhosis, diabetes, GERD, GI bleed, hypertension, liver disease, other Surgical history: Reports: cancer surgery, cholecystectomy, YOVANI/BSO Psychiatric history: Reports: anxiety, depression - Social History Smoking Status: Former smoker Smokeless Tobacco Status: No Alcohol use: Reports: none Drug use: Reports: none Physical Exam - General Limitations: no limitations General appearance: alert, in no apparent distress, obese - Head Head exam: atraumatic, normocephalic, normal inspection - Eye Eye exam: Present: normal appearance, PERRL, EOMI. Absent: scleral icterus, nys tagmus - ENT ENT exam: normal exam, normal oropharynx, mucous membranes moist - Neck Neck exam: Present: normal inspection, full ROM, trachea midline - Chest Chest inspection: Present: normal inspection, symmetric chest wall rise. Absent: tenderness - Respiratory Respiratory exam: Present: normal lung sounds bilaterally. Absent: respiratory distress, wheezes - Cardiovascular Cardiovascular exam: Present: regular rate, normal rhythm, normal heart sounds - Abdominal Exam Abdominal exam: Present: soft (Obese), Non-Tender, normal bowel sounds. Absent: tenderness, distention, guarding, rebound, rigidity - Expanded Lower Extremity Exam Hip/Pelvis exam: Present: full ROM (Left hip limited due to prior fracture), external rotation, shortening, pelvis stable. Absent: tenderness - Neurological Exam Neurological exam: Present: alert, oriented X3 - Expanded Neurological Exam Patient oriented to: Present: person, place, time Speech: Present: fluid speech Cranial nerves: EOM function (II, III, IV, ): Normal, facial sensation (V): Normal, facial palsy (VII): Normal, gag reflex (IX): Normal, spinal accessory function (XI): Normal, tongue deviation (XII): Normal Motor strength - LUE: 5/5 Motor strength - RUE: 5/5 Motor strength - LLE: 5/5 Motor strength - RLE: 5/5 Upper motor neuron exam: maddie neglect: Absent bilaterally, pronator drift: Absent bilaterally Sensory exam upper extremity: light touch: Normal Sensory exam lower extremity: light touch: Normal Coma Scale Eye Opening: Spontaneous Coma Scale Motor Response: Obeys Commands Coma Scale Verbal Response: Oriented Coma Scale Total: 15 - Psychiatric Psychiatric exam: Present: normal affect, normal mood - Skin Skin exam: Present: warm, dry, intact, normal color. Absent: rash, cyanosis, diaphoresis Course Course Narrative: Patient presents with concerns of altered mental status and slurred speech. We are able to speak to the nursing facility and states she woke up and she was slurring her speech. This has resulted that this time during my examination. She is alert and oriented to person place and time. She is not displaying any neurologic focal deficits. She does have some slight decrease weakness in the left lower leg however she is had to fractures there in her hip. States she is also reporting a chronic cough that she is currently being treated with azithromycin. She otherwise feels her normal self at this time. Altered mental status workup initiated including CT head. - Reevaluation(s) Reevaluation #1: Troponin was significantly elevated 0.29. Her EKG showed some slight ST depression that was consistent with prior in April 2018. She is denying any chest pain at this time. She does report over the past several days she is been having midsternal chest pain that she described as heartburn. She is not having any pain at this moment. No history of cardiac ischemic disease. Her ammonia levels also elevated. This could suggest the explanation of her altered mental status. She would benefit admission and further evaluation for the elevated troponin/NSTEMI as well as further management of her cirrhosis. She does take lactulose and rifaximin. Patient will be admitted - Consultations Consultation #1: Spoke to the on-call immigration case worker Dr. Dukes who agrees with heparinization for elevated trop and history of CP the past few days. On her medical record it has Xarelto listed as a medication. Reviewing her prison facility medication list it is not listed. Patient states she is not taking any blood thinner specifically Xarelto. At this time no contraindications for heparin. She denies any G.I. bleed symptoms. Aspirin was given. Patient will be admitted for her altered mental status, elevated ammonia and NSTEMI Time: 18:12 Consultation #2: Spoke with on-call hospitalist kayce Delong to admit for AMS, elevated ammonia, NSTEMI. No further orders at this time Time: 18:41 Vital Signs Temperature 97.9 F 06/28/18 16:24 Pulse Rate 74 06/28/18 16:24 Respiratory Rate 18 06/28/18 16:24 Blood Pressure 101/52 06/28/18 16:24 O2 Sat by Pulse Oximetry 96 06/28/18 16:24 Temperature 97.9 F 06/28/18 16:24 Pulse Rate 78 06/28/18 17:54 Respiratory Rate 18 06/28/18 17:54 Blood Pressure 103/65 04/29/19 17:54 O2 Sat by Pulse Oximetry 95 06/28/18 17:54 Oxygen Delivery Oxygen Delivery Room Air Altered Mental Status - MDM Narrative Medical decision making narrative: Patient was discussed with my attending physician who agrees with ED management and final disposition. They independently evaluated the patient. Please refer to their attestation to this encounter for additional information. This note was generated by [employer] voice recognition software and as a result grammatical or spelling errors may occur using this program. - Medical Records Medical records reviewed: Yes I reviewed the patient's medical records. - Lab Data Lab results reviewed: Yes I reviewed the patient's lab results. Result diagrams: 06/28/18 18:04 06/28/18 16:51 Lab Results 06/28/18 06/28/18 06/28/18 Range/Units 16:51 16:51 16:51 WBC 4.7 (4.3-11.1) K/mcL RBC 3.75 L (3.82-4.97) M/mcL Hgb 10.3 L (11.5-15.4) g/dL Hct 34.5 L (35.3-44.9) % MCV 92.0 (83.0-100.0) fL MCH 27.5 L (28.0-33.3) pg MCHC 29.9 L (31.6-35.5) g/dL RDW 16.6 H (11.5-14.5) % Plt Count 90 L (140-400) K/mcL MPV 10.2 (9.4-12.4) fL Immature Gran % 0.4 (0-4) % Seg Neutrophils % 74.5 % Lymphocytes % 9.8 % Monocytes % 11.9 % Eosinophils % 2.8 % Basophils % 0.6 % Neutrophils # 3.5 (1.6-8.9) K/mcL Lymphocytes # 0.5 L (0.6-4.6) K/mcL Monocytes # 0.6 (0.0-1.3) K/mcL Eosinophils # 0.1 (0.0-0.6) K/mcL Basophils # 0.0 (0.0-0.2) K/mcL Platelet Estimate Decreased L (Normal) Immature Plt Fraction (1.1-6.1) % PT 15.4 H (9.4-12.1) Seconds INR 1.4 APTT 33.6 (26.0-36.0) Seconds Sodium 134 L (136-145) mEq/L Potassium 4.3 (3.5-5.1) mEq/L Chloride 99 (98-107) mEq/L Carbon Dioxide 33 H (23-29) mEq/L BUN 16 (8-23) mg/dL Creatinine 0.67 (0.60-1.20) mg/dL Est GFR ( Amer) > 60 (> 60) Est GFR (Non-Af Amer) > 60 (> 60) BUN/Creatinine Ratio 24 (6-26) Glucose 183 H (70-105) mg/dL Calculated Osmolality 284 (280-300) Calcium 8.8 (8.6-10.3) mg/dL Total Bilirubin 1.9 H (0.3-1.0) mg/dL Direct Bilirubin 0.7 H (0.0-0.2) mg/dL Indirect Bilirubin 1.2 (0.0-1.2) mg/dL AST 35 (13-39) Units/L ALT 19 (7-52) Units/L Alkaline Phosphatase 223 H (34-104) Units/L Ammonia (16-53) mcmol/L Troponin I 0.29 H* (< 0.04) ng/mL Serum Total Protein 7.3 (6.4-8.9) g/dL Albumin 2.7 L (3.5-5.7) g/dL Globulin 4.6 H (2.4-3.5) g/dL Albumin/Globulin Ratio 0.6 L (1.1-2.2) Urine Color (Yellow) Urine Clarity (Clear) Urine pH (5.0-8.0) pH Units Ur Specific [place] (1.010-1.025) Urine Protein (Neg-Trace) mg/dL Urine Glucose (UA) (Normal) mg/dL Urine Ketones (Negative) mg/dL Urine Blood (Negative) Urine Nitrite (Negative) Urine Bilirubin (Negative) Urine Urobilinogen (Normal) mg/dL Ur Leukocyte Esterase (Negative) Urine Microscopic RBC (0-3) per hpf Urine Microscopic WBC (0-3) per hpf Ur Squamous Epith Cells (None-Few) per lpf Urine Bacteria (None-Few) per hpf Hyaline Casts (None-Few) per lpf Ur Culture Indicated? (NO) 06/28/18 06/28/18 06/28/18 Range/Units 16:51 16:59 18:04 WBC 5.3 (4.3-11.1) K/mcL RBC 3.59 L (3.82-4.97) M/mcL Hgb 9.9 L (11.5-15.4) g/dL Hct 32.9 L (35.3-44.9) % MCV 91.6 (83.0-100.0) fL MCH 27.6 L (28.0-33.3) pg MCHC 30.1 L (31.6-35.5) g/dL RDW 16.6 H (11.5-14.5) % Plt Count 88 L (140-400) K/mcL MPV 9.8 (9.4-12.4) fL Immature Gran % (0-4) % Seg Neutrophils % % Lymphocytes % % Monocytes % % Eosinophils % % Basophils % % Neutrophils # (1.6-8.9) K/mcL Lymphocytes # (0.6-4.6) K/mcL Monocytes # (0.0-1.3) K/mcL Eosinophils # (0.0-0.6) K/mcL Basophils # (0.0-0.2) K/mcL Platelet Estimate (Normal) Immature Plt Fraction 2.4 (1.1-6.1) % PT (9.4-12.1) Seconds INR APTT (26.0-36.0) Seconds Sodium (136-145) mEq/L Potassium (3.5-5.1) mEq/L Chloride (98-107) mEq/L Carbon Dioxide (23-29) mEq/L BUN (8-23) mg/dL Creatinine (0.60-1.20) mg/dL Est GFR ( Amer) (> 60) Est GFR (Non-Af Amer) (> 60) BUN/Creatinine Ratio (6-26) Glucose (70-105) mg/dL Calculated Osmolality (280-300) Calcium (8.6-10.3) mg/dL Total Bilirubin (0.3-1.0) mg/dL Direct Bilirubin (0.0-0.2) mg/dL Indirect Bilirubin (0.0-1.2) mg/dL AST (13-39) Units/L ALT (7-52) Units/L Alkaline Phosphatase (34-104) Units/L Ammonia 54 H (16-53) mcmol/L Troponin I (< 0.04) ng/mL Serum Total Protein (6.4-8.9) g/dL Albumin (3.5-5.7) g/dL Globulin (2.4-3.5) g/dL Albumin/Globulin Ratio (1.1-2.2) Urine Color Yellow (Yellow) Urine Clarity Clear (Clear) Urine pH 7.0 (5.0-8.0) pH Units Ur Specific [place] 1.016 (1.010-1.025) Urine Protein Negative (Neg-Trace) mg/dL Urine Glucose (UA) Normal (Normal) mg/dL Urine Ketones Negative (Negative) mg/dL Urine Blood Negative (Negative) Urine Nitrite Negative (Negative) Urine Bilirubin Negative (Negative) Urine Urobilinogen 4.0 H (Normal) mg/dL Ur Leukocyte Esterase Trace H (Negative) Urine Microscopic RBC 0-3 (0-3) per hpf Urine Microscopic WBC 0-3 (0-3) per hpf Ur Squamous Epith Cells Moderate H (None-Few) per lpf Urine Bacteria None Seen (None-Few) per hpf Hyaline Casts None Seen (None-Few) per lpf Ur Culture Indicated? YES A (NO) - Radiology Data Radiology results reviewed: Yes I reviewed the patient's radiology results. Chest X-Ray 06/28/18 16:31 IMPRESSION: Moderate rotated exam to the left limits the overall evaluation. There is stable perihilar change which may represent chronic bronchitis/bronchiolitis. No acute pulmonary abnormality. D/ / 06/28/2018 16:56:17 Ruben Bolanos MD / [employer]old Interpreting Provider: Ruben Bolanos MD Head CT 06/28/18 16:31 IMPRESSION: No acute intracranial abnormality. Fungal sinusitis versus inspissated secretions. D/ / Ivan De Guzman MD / Ivan De Guzman MD Interpreting Provider: Ivan De Guzman MD - EKG Data EKG attestation: Yes I reviewed and interpreted this EKG. EKG results narrative: EKG performed 1627 normal sinus rhythm 77 beats per minute, left axis deviation, right bundle branch block, no ST elevation or depression. It is compared to prior EKG performed 04/14/2017 was similar consistent findings. No acute ischemic changes. TPA Checklist - Eligibilty for IV tPA 2. Clinical diagnosis of ischemic stroke causing deficit: No - LKW: 3-4.5 hrs Add. Warnings/Precautions Patient/family understanding: The patient/family members have been counseled and understood the risk, benefit, and alternatives of treatment.
--- NOTE | 2018-06-28 16:37 | Emergency Department Note ---
Disposition Clinical Impression: Altered mental status Qualifiers: Altered mental status type: transient alteration of awareness Qualified Code(s): R40.4 - Transient alteration of awareness Disposition: Still a Patient Forms: ED Satisfaction Letter General Adult HPI - General Chief complaint: ED Altered Mental Status Stated complaint: AMS Time Seen by Provider: 06/28/18 16:23 Source: patient, family (), EMS Mode of arrival: EMS Limitations: no limitations Nursing Notes Reviewed: Yes Vital Signs Reviewed: Yes - History of Present Illness HPI Narrative: ED ATTESTATION NOTE: I examined this patient and my medical decision-making was reviewed with the Resident Physician/TOTER/PA/Student. I have personally performed a face to face evaluation on this patient & I agree with the documented findings, disposition and treatment plan as described except to the extent set forth below. Patient was seen with emergency medicine resident Dr. Raffy Vaz please see copy of his note for details of this encounter Briefly: 61-year-old female brought in by EMS from custodial facility for altered mental status. Stated that she was not acting right and had slurred speech upon arrival she is awake and alert appropriate to give detailed history she stated she had pneumonia level drawn recently which was 43 And be contr ibuting to her issues. Patient is awake alert and cooperative and age of 1. Patient could a head CT screening labs EKG. Disposition pending. We will also contact the custodial facility to get a little more history Pain Scale: 0 - Related Data Home Medications Medication Instructions Recorded Confirmed Pantoprazole Sodium 20 mg PO DAILY@0730 05/19/17 04/14/18 Loratadine [Allergy Relief] 10 mg PO DAILY 05/25/17 04/14/18 SUMAtriptan succinate [Imitrex] 25 mg PO Q2H PRN 05/25/17 04/14/18 Venlafaxine XR (24 HR) [Effexor Xr] 150 mg PO DAILY 05/25/17 04/14/18 Furosemide [Lasix] 40 mg PO DAILY 11/29/17 04/14/18 Insulin NPH Human Isophane 45 unit SQ 0730,1630 11/29/17 04/14/18 [Novolin N] Insulin Regular, Human [Novolin R] 10 unit SQ TIDWM 11/29/17 04/14/18 Spironolactone 100 mg PO DAILY 11/29/17 04/14/18 Lactulose 45 ml PO BID 04/05/18 04/14/18 Propranolol [Inderal] 30 mg PO BID 04/05/18 04/14/18 Rifaximin [Xifaxan] 500 mg PO BID 04/05/18 04/14/18 Citalopram Hydrobromide 30 mg PO DAILY 04/06/18 04/14/18 [Citalopram HBr] Metoprolol [Lopressor] 12.5 mg PO BID 04/06/18 04/14/18 Cyclobenzaprine [Flexeril] 5 mg PO Q6H PRN 04/14/18 04/14/18 Previous Rx's Medication Instructions Recorded Rivaroxaban [Xarelto] 10 mg PO 1700 #25 tablet 04/09/18 Allergies Allergy/AdvReac Type Severity Reaction Status Date / Time tetanus and diphtheria Allergy Rash Verified 04/14/18 10:59 toxoids [Tetanus&Diphtheria Toxoid] omeprazole [From Prilosec] AdvReac Diarrhea Verified 04/14/18 13:48 Past Medical History - Past Medical History Medical history: Reports: cirrhosis, diabetes, GERD, GI bleed, hypertension, liver disease, other Surgical history: Reports: cancer surgery, cholecystectomy, YOVANI/BSO Psychiatric history: Reports: anxiety, depression - Social History Smoking Status: Former smoker Smokeless Tobacco Status: No Alcohol use: Reports: none Drug use: Reports: none Physical Exam - General Limitations: no limitations General appearance: alert, in no apparent distress Course Vital Signs Temperature 97.9 F 06/28/18 16:24 Pulse Rate 74 06/28/18 16:24 Respiratory Rate 18 06/28/18 16:24 Blood Pressure 101/52 06/28/18 16:24 O2 Sat by Pulse Oximetry 96 06/28/18 16:24 Temperature 97.9 F 06/28/18 16:24 Pulse Rate 74 06/28/18 16:24 Respiratory Rate 18 06/28/18 16:24 Blood Pressure 101/52 06/28/18 16:24 O2 Sat by Pulse Oximetry 96 06/28/18 16:24 Oxygen Delivery Oxygen Delivery Room Air
[2018-06-28 17:05] LABS: Basophils % 0.6 %; Eosinophils # 0.1 K/mcL (0.0-0.6); Eosinophils % 2.8 %; Hematocrit 34.5 % (35.3-44.9); Hemoglobin 10.3 g/dL (11.5-15.4); Immature Granulocytes % 0.4 % (0-4); Lymphocytes # 0.5 K/mcL (0.6-4.6); Lymphocytes % 9.8 %; Mean Corpuscular HGB Conc 29.9 g/dL (31.6-35.5); Mean Corpuscular Hemoglobin 27.5 pg (28.0-33.3); Mean Platelet Volume 10.2 fL (9.4-12.4); Monocytes # 0.6 K/mcL (0.0-1.3); Monocytes % 11.9 %; Neutrophils # 3.5 K/mcL (1.6-8.9); Red Blood Count 3.75 M/mcL (3.82-4.97); Red Cell Distribution Width 16.6 % (11.5-14.5); Segmented Neutrophils % 74.5 %
[2018-06-28 17:06] LABS: Platelet Count 90 K/mcL (140-400)
[2018-06-28 17:17] LABS: Bilirubin,Urine Negative (Negative); Blood,Urine Negative (Negative); Clarity,Urine Clear (Clear); Color,Urine Yellow (Yellow); Glucose,Urine (UA) Normal (Normal); Ketones,Urine Negative (Negative); Leukocyte Esterase,Urine Trace (Negative); Nitrite,Urine Negative (Negative); Protein,Urine Negative (Neg-Trace); Specific Gravity,Urine 1.016 (1.010-1.025)
[2018-06-28 17:18] LABS: INR 1.4; Prothrombin Time 15.4 Seconds (9.4-12.1)
[2018-06-28 17:20] LABS: Bacteria,Urine None Seen per hpf (None-Few); Hyaline Casts,Urine None Seen per lpf (None-Few); RBC,Urine 0-3 per hpf (0-3); Squamous Epithelial Cell,Urine Moderate per lpf (None-Few); WBC,Urine 0-3 per hpf (0-3)
[2018-06-28 17:21] LABS: Activated Partial Thrombo Time 33.6 Seconds (26.0-36.0)
[2018-06-28 17:31] LABS: Alanine Aminotransferase 19 Units/L (7-52); Albumin 2.7 g/dL (3.5-5.7); Albumin/Globulin Ratio 0.6 (1.1-2.2); Alkaline Phosphatase 223 Units/L (34-104); Aspartate Amino Transferase 35 Units/L (13-39); BUN/Creatinine Ratio 24 (6-26); Bilirubin,Direct 0.7 mg/dL (0.0-0.2); Bilirubin,Indirect 1.2 mg/dL (0.0-1.2); Bilirubin,Total 1.9 mg/dL (0.3-1.0); Blood Urea Nitrogen 16 mg/dL (8-23); Calcium 8.8 mg/dL (8.6-10.3); Carbon Dioxide 33 mEq/L (23-29); Chloride 99 mEq/L (98-107); Globulin 4.6 g/dL (2.4-3.5); Glucose 183 mg/dL (70-105); Osmolality,Calculated 284 (280-300); Potassium 4.3 mEq/L (3.5-5.1); Sodium 134 mEq/L (136-145); Total Protein 7.3 g/dL (6.4-8.9); Troponin I 0.29 ng/mL (< 0.04); eGFR For Non-African Americans > 60 (> 60)
[2018-06-28 17:50] LABS: Platelet Estimate Decreased (Normal)
[2018-06-28] MEDS ORDERED: *HR* Heparin 5,000 UNIT/ML VIAL IVP PRN (18:04)
[2018-06-28] MEDS ORDERED: *HR* Heparin 5,000 UNIT/ML VIAL IVP ONE (18:04)
[2018-06-28] MEDS ORDERED: Aspirin 325 MG TABLET PO ONE (18:11)
[2018-06-28 18:30] LABS: Hemoglobin 9.9 g/dL (11.5-15.4); Red Cell Distribution Width 16.6 % (11.5-14.5)
[2018-06-28 18:31] LABS: Hematocrit 32.9 % (35.3-44.9); Immature Platelets 2.4 % (1.1-6.1); Mean Corpuscular HGB Conc 30.1 g/dL (31.6-35.5); Mean Corpuscular Hemoglobin 27.6 pg (28.0-33.3); Mean Corpuscular Volume 91.6 fL (83.0-100.0); Mean Platelet Volume 9.8 fL (9.4-12.4); Red Blood Count 3.59 M/mcL (3.82-4.97)
[2018-06-28] MEDS: Heparin 25,000 UNIT/250 ML D5W 25,000 UNIT/250 ML IV.SOLN IVC SCH (18:44)
[2018-06-28 18:47] LABS: INR 1.4; Prothrombin Time 15.5 Seconds (9.4-12.1)
[2018-06-28] MEDS ORDERED: Naloxone 0.4 MG/ML INJ IVP PRN (21:19)
[2018-06-28] MEDS ORDERED: Ondansetron ODT 4 MG TAB.RAPDIS SL PRN (21:19)
[2018-06-28] MEDS ORDERED: D5% in Water 1,000 ML IVC PRN (21:22)
[2018-06-28] MEDS ORDERED: Dextrose Gel 15 GM/37.5 ML TUBE PO PRN ×2 (21:22)
[2018-06-28] MEDS ORDERED: *HR* Dextrose 50 % in Water (Syg) 50 ML SYRINGE IVP PRN (21:22)
[2018-06-28] MEDS ORDERED: Ipratropium/Albuterol Neb 3 ML IH PRN (21:30)
--- NOTE | 2018-06-28 21:54 | Internal Med History&Physical ---
<Lesile Jang - Last Filed: 06/28/18 23:36> Date of Encounter: 06/28/18 Time of Encounter: 21:00 Internal Medicine - H&P: HPI Chief complaint: AMS History of present illness: Ms. Reno is a 63 year old obese female with past medical history of cirrhosis suspected secondary to hepatic steatosis, diabetes mellitus, hypertension, anxiety and depression who was presented to the ED from her nursing facility after what was believed to be altered mental status. She is at the outside nursing facility for rehab after hip fracture in April. At the nursing facili ty she was believed to have lethargy subsequently resulting in her current addmission. Upon arrival to the ED she was alert and oriented x3. During discussion with the patient she reported the nursing staff likely assumed her to be altered to due her chronic daytime somlonece and culmination of her chronic pain medication and ativan. In the ED she was noted to have ammonia of 54 and troponin of 0.29 without any EKG changes and she denies chest pain. She was also noted to have elevated direct bilirubin and alkaline phosphatase but reports no abdominal pain. She is only complaining of chronic nasal congestion and reports was supposed to have surgical intervention last year but anesthesiology did not feel comfortable to proceed with surgical intervention. She denies any chest pain at this time. She also denies fever, chills, nausea, emesis, shortness of breath. Past Med Surg Social Fam HX - Past Medical History Medical history: cirrhosis, diabetes, GERD, GI bleed, hypertension, liver disease, other Additional medical history: CIRRHOSIS. DEPRESSION. ANXIETY. ESOPHAGEAL VARICES. HTN. HIGH LIPIDS. DM II. GERD. BRIONES Psychiatric history: anxiety, depression - Past Surgical History Surgical History: cancer surgery, cholecystectomy, YOVANI/BSO Additional surgical history: T&A. UPPER AND LOWER SCOPES. FINGER CYST REMOVAL. left femur. right total shoulder - Social History Smoking Status: Former smoker Smokeless Tobacco Status: No Alcohol use: none Drug use: none - Family History Father Hx Family GI Disorders: Yes (liver cirrhosis) Mother Hx Family Endocrine Disorder: Yes (diabetes ) Internal Medicine - H&P: Meds Citalopram [CeleXA] 20 mg PO 0800 06/28/18 [History] Furosemide [Lasix] 40 mg PO 0800 06/28/18 [History] Guaifenesin [Mucinex] 600 mg PO BID PRN 06/28/18 [History] Insulin NPH Human Isophane [Novolin N] 45 unit SQ 0800,199906/28/18 [History] Insulin Regular, Human [Novolin R] 10 unit IJ 0800,1200,1600 06/28/18 [History] Ipratropium/Albuterol Neb [Duoneb] 3 ml IH Q6HR 06/28/18 [History] LORazepam [Ativan] 1 mg PO BID PRN 06/28/18 [History] Lactobacillus Acidophilus [Acidophilus] 1 each PO 0800,199906/28/18 [History] Lactulose 20 gm PO 1200,1700 06/28/18 [History] Lactulose [Enulose] 30 gm PO 0800,199906/28/18 [History] Loratadine [Allergy Relief] 10 mg PO 0800 06/28/18 [History] Melatonin 5 mg PO 199906/28/18 [History] Metoprolol [Lopressor] 12.5 mg PO BID 06/28/18 [History] Oxycodone HCl 5 mg PO Q4H PRN 06/28/18 [History] Pantoprazole Sodium [Protonix] 20 mg PO 199906/28/18 [History] Propranolol [Inderal] 10 mg PO 0800,1600 06/28/18 [History] Propranolol [Inderal] 20 mg PO 0800,1600 06/28/18 [History] Rifaximin [Xifaxan] 550 mg PO 0800,199906/28/18 [History] SUMAtriptan succinate [Imitrex] 25 mg PO QID PRN 06/28/18 [History] Spironolactone [Aldactone] 100 mg PO 0800 06/28/18 [History] Venlafaxine HCl [Venlafaxine HCl ER] 150 mg PO 0800 06/28/18 [History] Allergy/AdvReac Type Severity Reaction Status Date / Time tetanus and diphtheria Allergy Rash Verified 06/28/18 22:45 toxoids [Tetanus&Diphtheria Toxoid] omeprazole [From Prilosec] AdvReac Diarrhea Verified 06/28/18 22:45 All Systems PM: A 10-system review of systems was performed and is negative for pertinent findings except as documented above in the HPI. - Constitutional Constitutional: no chills, no fever(s), no falls, no weakness - EENT Eyes: no blurry vision, no change in vision, no loss of vision, no pain Nose, mouth and throat: nasal congestion, sinus pressure, no dysphagia, no odynophagia - Cardiovascular Cardiovascular ROS IM: no chest pain, no dyspnea, no dyspnea on exertion, no palpitations - Respiratory Respiratory: no cough, no dyspnea, no dyspnea on exertion, no pain on inspiration, no chest congestion - Gastrointestinal Gastrointestinal: no abdominal pain, no dysphagia, no nausea, no vomiting - Genitourinary Genitourinary: no difficulty urinating, no dysuria, no hematuria - Musculoskeletal Musculoskeletal ROS IM: no myalgias, no numbness, no tingling - Integumentary Integumentary IM: no erythema, no pruritus, no rash, no jaundice - Neurological Neurological ROS: no confusion, no focal weakness, no numbness, no paresthesias - Psychiatric Psychiatric: anxiety, depression, no suicidal ideation - Constitutional Vitals: Temp Pulse Resp BP Pulse Ox 98.5 F 85 18 120/64 94 06/28/18 20:32 06/28/18 20:32 06/28/18 20:32 06/28/18 20:32 06/28/18 20:32 Exam: Gen: Vitals noted. No acute distress. Appears comfortable. Eyes: anicteric sclerae, moist conjunctivae; no lid-lag; Pupils equal and reactive to light HENT: Atraumatic; oropharynx clear with moist mucous membranes and no mucosal ulcerations; normal hard and soft palate, no teeth or dentures Neck: Trachea midline; supple, no thyromegaly or lymphadenopathy Cardiac: RRR, no murmur, +S1/S2. No JVD noted. Pulmonary: CTA bilaterally, rales or rhonchi, equal chest expansion, diffuse wheezing of all lung lobes Abdomen: soft, nontender, no guarding. No masses or hepatosplenomegaly MSK: ROM intact, no joint swelling noted Extremities: no edema, nontender calf Skin: Normal temperature, turgor; no rash, ulcers or subcutaneous nodules Neuro: moves all extremities, no focal deficits. Psych: Labile mood, anxious, A&Ox3 Internal Med - H&P Results - Labs CBC & Chem 7: 06/28/18 18:04 06/28/18 16:51 Labs: Short CBC 06/28/18 06/28/18 Range/Units 16:51 18:04 WBC 4.7 5.3 (4.3-11.1) K/mcL Hgb 10.3 L 9.9 L (11.5-15.4) g/dL Hct 34.5 L 32.9 L (35.3-44.9) % Plt Count 90 L 88 L (140-400) K/mcL Neutrophils # 3.5 (1.6-8.9) K/mcL BMP 06/28/18 16:51 Sodium 134 L Potassium 4.3 Chloride 99 Carbon Dioxide 33 H BUN 16 Creatinine 0.67 Glucose 183 H Calcium 8.8 Cardiac Enzymes 06/28/18 Range/Units 16:51 Troponin I 0.29 H* (< 0.04) ng/mL Liver Function 06/28/18 Range/Units 16:51 Total Bilirubin 1.9 H (0.3-1.0) mg/dL Direct Bilirubin 0.7 H (0.0-0.2) mg/dL AST 35 (13-39) Units/L ALT 19 (7-52) Units/L Alkaline Phosphatase 223 H (34-104) Units/L Albumin 2.7 L (3.5-5.7) g/dL Urine 06/28/18 Range/Units 16:59 Urine Color Yellow (Yellow) Urine Clarity Clear (Clear) Urine pH 7.0 (5.0-8.0) pH Units Ur Specific Thornton 1.016 (1.010-1.025) Urine Protein Negative (Neg-Trace) mg/dL Urine Glucose (UA) Normal (Normal) mg/dL - Impressions ITS Impressions Chest X-Ray 06/28/18 16:31 IMPRESSION: Moderate rotated exam to the left limits the overall evaluation. There is stable perihilar change which may represent chronic bronchitis/bronchiolitis. No acute pulmonary abnormality. D/ / 06/28/2018 16:56:17 Ruben Bolanos MD / earnold Interpreting Provider: Ruben Bolanos MD Head CT 06/28/18 16:31 IMPRESSION: No acute intracranial abnormality. Fungal sinusitis versus inspissated secretions. D/ / Ivan De Guzman MD / Ivan De Guzman MD Interpreting Provider: Ivan De Guzman MD - Assessment and Plan (1) Acute encephalopathy Current Visit: Yes Status: Acute Assessment and plan: Was presented to the ED due to altered mental status likely secondary to her culmination of home medications She reports often her home medications and her day time sleeping schedule makes her sleepy her ammonia was mildly elevated and likely did not contribute to her change in mentation She denies dysuria, recent falls or recent illnesses Waiting for medication reconciliation for ativan and oxycodone, hold at this time Head CT shows no acute changes which could have contributed to her altered mental status Continue to monitor (2) Elevated troponin Current Visit: Yes Status: Acute Assessment and plan: Troponin noted to be elevated at 0.29, unsure of the etiology EKG shows no changes She received 325 mg of Aspirin She denies any chest pain No previous history of KS or cardiac stent placement Her last echo was on 04/05/18 and showed EF of 65-70% with severe aortic stenosis ED consulted cardiology and they recommended heparin drip Can stop heparin drip after 48 hours Will continue to trend troponin Continue cardiac monitoring (3) Cirrhosis Current Visit: No Status: Acute Assessment and plan: History of cirrhosis which she attributes to uncontrolled diabetes mellitus Continue home lactulose Qualifiers: Hepatic cirrhosis type: other cirrhosis Qualified Code(s): K74.69 - Other cirrhosis of liver (4) Sinus congestion Current Visit: Yes Status: Chronic Assessment and plan: Reports history of nasal congestion Reports she was recently treated with zpak Was planned for surgical intervention one year ago but per patient anesthesiology did not want to proceed CT of the head continues to show right maxillary sinus with complete opacification Will require outpatient follow up (5) COPD (chronic obstructive pulmonary disease) Current Visit: Yes Status: Chronic Assessment and plan: History of COPD with 80 pack year history, not in current exacerbation Not a current smoker Continues to have chronic cough Continue home guafenesin 600 mg PO BID Continue aiyana duonebs Qualifiers: COPD type: chronic bronchitis Chronic bronchitis type: unspecified Qualified Code(s): J42 - Unspecified chronic bronchitis (6) Hypertension Current Visit: No Status: Chronic Assessment and plan: History of HTN Continue home furosemide and metoprolol Qualifiers: Hypertension type: essential hypertension Qualified Code(s): I10 - Essential (primary) hypertension (7) Anxiety Current Visit: No Status: Acute Assessment and plan: History of anxiety Can continue home lorazepam after medication reconciliation (8) Type II diabetes mellitus Current Visit: No Status: Chronic Assessment and plan: History of type II diabetes, on NPH at home Will continue sliding scale and add detemir Continue diabetic diet Qualifiers: Diabetes mellitus chcf insulin use: with termite control servicer use Diabetes mellitus complication status: with unspecified complications Qualified Code(s): E11.8 - Type 2 diabetes mellitus with unspecified complications; Z79.4 - MCFP (current) use of insulin (9) Thrombocytopenia Current Visit: Yes Status: Chronic Assessment and plan: Platelet noted to be 88, appears to have chronic thrombocytopenia likely secondary to cirrhosis (10) DVT prophylaxis Current Visit: No Status: Acute Assessment and plan: On heparin drip (11) Depression Current Visit: Yes Status: Chronic Assessment and plan: History of depression, continue home citalopram Qualifiers: Depression Type: major depressive disorder Major depression recurrence: un specified whether recurrent Active/Remission status: remission status uns pecified Qualified Code(s): F32.9 - Major depressive disorder, single episode, unspecified - Time Spent With Patient Total time spent is greater than 50% in coordination of care (as documented) at patient's floor/unit and/or counseling patient: <Auugstin Jarvis - Last Filed: 06/29/18 00:38> Date of Encounter: 06/28/18 Internal Medicine - H&P: HPI History of present illness: Ms. Reno is a 63 year old female All Systems PM: A 10-system review of systems was performed and is negative for pertinent findings except as documented above in the HPI. - Constitutional Vitals: Temp Pulse Resp BP Pulse Ox 97.9 F 97 18 90/57 97 06/28/18 23:35 06/28/18 23:35 06/28/18 23:35 06/28/18 23:35 06/28/18 23:35 Internal Med - H&P Results - Labs CBC & Chem 7: 06/28/18 18:04 06/28/18 16:51 Labs: Short CBC 04/29/19 04/29/19 Range/Units 16:51 18:04 WBC 4.7 5.3 (4.3-11.1) K/mcL Hgb 10.3 L 9.9 L (11.5-15.4) g/dL Hct 34.5 L 32.9 L (35.3-44.9) % Plt Count 90 L 88 L (140-400) K/mcL Neutrophils # 3.5 (1.6-8.9) K/mcL BMP 06/28/18 16:51 Sodium 134 L Potassium 4.3 Chloride 99 Carbon Dioxide 33 H BUN 16 Creatinine 0.67 Glucose 183 H Calcium 8.8 Cardiac Enzymes 06/28/18 Range/Units 16:51 Troponin I 0.29 H* (< 0.04) ng/mL Liver Function 06/28/18 Range/Units 16:51 Total Bilirubin 1.9 H (0.3-1.0) mg/dL Direct Bilirubin 0.7 H (0.0-0.2) mg/dL AST 35 (13-39) Units/L ALT 19 (7-52) Units/L Alkaline Phosphatase 223 H (34-104) Units/L Albumin 2.7 L (3.5-5.7) g/dL Urine 06/28/18 Range/Units 16:59 Urine Color Yellow (Yellow) Urine Clarity Clear (Clear) Urine pH 7.0 (5.0-8.0) pH Units Ur Specific Thornton 1.016 (1.010-1.025) Urine Protein Negative (Neg-Trace) mg/dL Urine Glucose (UA) Normal (Normal) mg/dL - Impressions ITS Impressions Chest X-Ray 06/28/18 16:31 IMPRESSION: Moderate rotated exam to the left limits the overall evaluation. There is stable perihilar change which may represent chronic bronchitis/bronchiolitis. No acute pulmonary abnormality. D/ / 06/28/2018 16:56:17 Ruben Bolanos MD / earnold Interpreting Provider: Ruben Bolanos MD Head CT 06/28/18 16:31 IMPRESSION: No acute intracranial abnormality. Fungal sinusitis versus inspissated secretions. D/ / Ivan De Guzman MD / Ivan De Guzman MD Interpreting Provider: Ivan De Guzman MD - Assessment and Plan (1) Cirrhosis Current Visit: No Status: Acute Qualifiers: Hepatic cirrhosis type: other cirrhosis Qualified Code(s): K74.69 - Other cirrhosis of liver (2) Hypertension Current Visit: No Status: Chronic Qualifiers: Hypertension type: essential hypertension Qualified Code(s): I10 - Es sential (primary) hypertension (3) Anxiety Current Visit: No Status: Acute (4) Type II diabetes mellitus Current Visit: No Status: Chronic Qualifiers: Diabetes mellitus termite control servicer insulin use: with chcf use Diabetes mellitus complication status: with unspecified complications Qualified Code(s): E11.8 - Type 2 diabetes mellitus with unspecified complications; Z79.4 - MCFP (current) use of insulin (5) DVT prophylaxis Current Visit: No Status: Acute (6) Elevated troponin Current Visit: Yes Status: Acute (7) Acute encephalopathy Current Visit: Yes Status: Acute (8) Sinus congestion Current Visit: Yes Status: Chronic (9) COPD (chronic obstructive pulmonary disease) Current Visit: Yes Status: Chronic Qualifiers: COPD type: chronic bronchitis Chronic bronchitis type: unspecified Qualified Code(s): J42 - Unspecified chronic bronchitis (10) Thrombocytopenia Current Visit: Yes Status: Chronic (11) Depression Current Visit: Yes Status: Chronic Qualifiers: Depression Type: major depressive disorder Major depression recurrence: unspecified whether recurrent Active/Remission status: remission status unspecified Qualified Code(s): F32.9 - Major depressive disorder, single episode, unspecified - Time Spent With Patient Total time spent is greater than 50% in coordination of care (as documented) at patient's floor/unit and/or counseling patient: - Attending Attestation I performed a history and physical exam of the patient and discussed management with the resident. I reviewed the resident's note and agree with the documented findings and plan of care. Amy Reno is a 63 year old woman who was referred for a lethargic state but seemingly fine and normal upon arrival. Incidentally found to have an elevated troponin without context as she has no clinical or electrocardiographic signs of ACS. She was started on heparin drip and is admitted for observation. Will continue to monitor trend and will be seen by cardiology in the morning. UNIQUE GEORGES.
[2018-06-28] MEDS: Insulin LISPRO 300 UNITS/3 ML VIAL SQ SCH (23:44)
[2018-06-29 01:40] LABS: Basophils % 0.3 %; Eosinophils # 0.1 K/mcL (0.0-0.6); Eosinophils % 2.2 %; Hematocrit 33.6 % (35.3-44.9); Hemoglobin 10.1 g/dL (11.5-15.4); Immature Granulocytes % 0.3 % (0-4); Lymphocytes # 0.5 K/mcL (0.6-4.6); Lymphocytes % 8.2 %; Mean Corpuscular HGB Conc 30.1 g/dL (31.6-35.5); Mean Corpuscular Hemoglobin 27.6 pg (28.0-33.3); Mean Corpuscular Volume 91.8 fL (83.0-100.0); Mean Platelet Volume 9.4 fL (9.4-12.4); Monocytes # 0.6 K/mcL (0.0-1.3); Monocytes % 9.1 %; Red Blood Count 3.66 M/mcL (3.82-4.97); Red Cell Distribution Width 16.8 % (11.5-14.5); Segmented Neutrophils % 79.9 %
[2018-06-29 01:42] LABS: Platelet Count 93 K/mcL (140-400); Platelet Estimate Decreased (Normal)
[2018-06-29 01:59] LABS: BUN/Creatinine Ratio 25 (6-26); Blood Urea Nitrogen 19 mg/dL (8-23); Carbon Dioxide 33 mEq/L (23-29); Chloride 98 mEq/L (98-107); Glucose 155 mg/dL (70-105); Osmolality,Calculated 289 (280-300); Potassium 4.2 mEq/L (3.5-5.1); Sodium 137 mEq/L (136-145); eGFR For Non-African Americans > 60 (> 60)
[2018-06-29] MEDS: *HR* Heparin 5,000 UNIT/ML VIAL IVP PRN ×2 (02:12→17:53)
[2018-06-29] MEDS ORDERED: Lactulose Oral Soln 20 GM/30 ML UDC PO SCH (08:00)
[2018-06-29] MEDS: Lactulose Oral Soln 20 GM/30 ML UDC PO SCH (10:00)
[2018-06-29] MEDS: Insulin LISPRO 300 UNITS/3 ML VIAL SQ SCH ×4 (11:33→21:51)
[2018-06-29] MEDS: Furosemide 40 MG TABLET PO SCH (11:35)
--- NOTE | 2018-06-29 14:04 | Electrocardiograph Report ---
[address] [id number] Test Date: 2018-06-28 Pat Name: Amy Reno Department: EXAM12 Room: 2NE28 Gender: F Band Booker: : 1955 Requested By: Raffy Vaz Order Number: [id number] Reading MD: Iman Vallejo Measurements Intervals [place] Rate: 77 P: 59 NE: 177 QRS: -58 QRSD: 131 T: 1 QT: 455 QTc: 515 Interpretive Statements Sinus rhythm Consider left atrial enlargement RBBB and LAFB Probable left ventricular hypertrophy Electronically Signed On 06-29-2018 14:02:35 EDT by Iman Vallejo
[2018-06-29] MEDS: Lactobacillus 1 EACH CAP.SPRINK PO SCH ×2 (14:29→21:50)
--- NOTE | 2018-06-29 15:51 | Cardiology Consult Note ---
<Iman Walton - Last Filed: 06/29/18 16:24> Date of Encounter: 06/29/18 Time of Encounter: 13:00 Assessment and Plan (1) NSTEMI (non-ST elevated myocardial infarction) Current Visit: Yes Status: Acute Patient found to have elevated troponins 0.29, 0.24 Denies chest pain EKG shows NSR, HR 77, left axis, RBBB and LAFB which are unchanged from previous. RI 165, QRS 121, QT 385, QTc 479. No ST segment elevation or depression Suspect secondary to demand ischemia Continue heparin drip for 48 hours Continue metoprolol and diuresis with lasix Inpatient vs outpatient diagnostic [facility] for possible repair of aortic valve (2) Aortic stenosis Current Visit: No Status: Chronic Patient has severe aortic stenosis Last ECHO 04/20 shows LVEF 65-70% with mild LV diastolic dysfunction, mildly dilated left atrium, normal right ventricle. Severe aortic stenosis with gradi ent 42 with signficant progression from 05/2017. Mild mitral regurgitation. Moderate ascites Denies syncope, anginal symptoms, however suspect preserved ejection fraction heart failure Patient will need inpatient vs outpatient diagnostic catheterization with possible valve replacement Patient will need comorbidities optimized prior to replacement Qualifiers: Cardiac valve disease etiology: etiology unspecified Qualified Code(s): I35.0 - Nonrheumatic aortic (valve) stenosis (3) Heart failure with preserved ejection fraction Current Visit: Yes Status: Suspected Suspect heart failure with preserved ejection fraction Last ECHO 04/20 shows LVEF 65-70% with mild LV diastolic dysfunction, mildly dilated left atrium, normal right ventricle. Severe aortic stenosis with gradient 42 with signficant progression from 05/2017. Mild mitral regurgitation. Moderate ascites May be secondary to worsening of aortic stenosis Continue lasix Strict I&O Qualifiers: Heart failure chronicity: chronic Qualified Code(s): I50.32 - Chronic diastolic (congestive) heart failure (4) Acute encephalopathy Current Visit: Yes Status: Acute Patient presented with AMS- lethargic and slurring of speech which has resolved Suspected to be secondary to polypharmacy Head CT negative for acute intracranial abnormalities, however fungal sinusitis vs inspissated secretions present Unlikely hepatic encephalopathy, ammonia mildly elevated at 54 Continue to monitor Fall percautions (5) Cirrhosis Current Visit: No Status: Acute Patient has history of cirrhosis secondary to BRIONES Mildly elevated ammonia level at 54 Continue rifixamin and lactulose Qualifiers: Hepatic cirrhosis type: other cirrhosis Qualified Code(s): K74.69 - Other cirrhosis of liver (6) COPD (chronic obstructive pulmonary disease) Current Visit: Yes Status: Chronic History of COPD Former smoker, continues to vape States she is at baseline shortness of breath, lungs have diffuse wheezing and coarse breath sounds Continue duoneb, guafenesin and respiratory support as necessary. Qualifiers: COPD type: chronic bronchitis Chronic bronchitis type: unspecified Qualified Code(s): J42 - Unspecified chronic bronchitis (7) Sinus congestion Current Visit: Yes Status: Chronic History of sinus congestion CT head shows fungal sinusitis vs inspissated secretions Management per primary (8) Hypertension Current Visit: No Status: Chronic History of HTN Continue Metoprolol 12.5 mg BID Continue to monitor Qualifiers: Hypertension type: essential hypertension Qualified Code(s): I10 - Essential (primary) hypertension (9) Type II diabetes mellitus Current Visit: Yes Status: Chronic History of DM type 2 Continue sliding scale insulin and detemir Continue to monitor glucose Qualifiers: Diabetes mellitus correction insulin use: with correction use Diabetes mellitus complication status: with unspecified complications Qualified Code(s): E11.8 - Type 2 diabetes mellitus with unspecified complications; Z79.4 - superintendent [employer] (current) use of insulin (10) DVT prophylaxis Current Visit: Yes Status: Acute Heparin drip Discussion w patient/family: The assessment and plan as outlined above was discussed with the patient and/or family members who expressed understanding and agreement. All questions were answered. Thank you for involving us in the care of your patient. Please call with any questions. History of Present Illness Consult date: 06/29/18 Consult reason: Elevated troponin Chief complaint: AMS History of present illness: Ms. Reno is a 63 year old female presenting from [facility] with AMS. PMH of aortic stenosis, liver cirrhosis secondary to BRIONES, GI bleeding from esophageal varices, DM, HTN, HLD, GERD, anxiety, depression, former smoker who continues to vape. She has been at [facility] since 12/18 and had a recent hip fracture in 04/20. 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 She states that she was difficult to arouse yesterday, however it was reported that she was more lethargic and having some slurring of speech and thus brought to ED. She states that she has had some recent episodes of a burning chest sensation but states that she checked her glucose during these episodes and finds her glucose to be in the 60's when they occur. She denies any chest pain or exertional component as she is rarely ambulatory due to hip fracture. She admits to baseline shortness of breath and cough productive of sputum. She denies any syncopal episodes, orthopnea, edema, or angina. Past Med Surg Social Fam HX - Past Medical History Medical history: cirrhosis, diabetes, GERD, GI bleed, hypertension, liver disease, other Additional medical history: CIRRHOSIS. DEPRESSION. ANXIETY. ESOPHAGEAL VARICES. HTN. HIGH LIPIDS. DM II. GERD. BRIONES Psychiatric history: anxiety, depression - Past Surgical History Surgical History: cancer surgery, cholecystectomy, YOVANI/BSO Additional surgical history: T&A. UPPER AND LOWER SCOPES. FINGER CYST REMOVAL. left femur. right total shoulder - Social History Smoking Status: Former smoker Smokeless Tobacco Status: No Alcohol use: none Drug use: none - Family History Father Hx Family GI Disorders: Yes (liver cirrhosis) Mother Hx Family Endocrine Disorder: Yes (diabetes ) Medications and Allergies Citalopram [CeleXA] 20 mg PO 0800 06/28/18 [History] Furosemide [Lasix] 40 mg PO 0800 06/28/18 [History] Guaifenesin [Mucinex] 600 mg PO BID PRN 06/28/18 [History] Insulin NPH Human Isophane [Novolin N] 45 unit SQ 0800,199906/28/18 [History] Insulin Regular, Human [Novolin R] 10 unit IJ 0800,1200,1600 06/28/18 [History] Ipratropium/Albuterol Neb [Duoneb] 3 ml IH Q6HR 06/28/18 [History] LORazepam [Ativan] 1 mg PO BID PRN 06/28/18 [History] Lactobacillus Acidophilus [Acidophilus] 1 each PO 0800,199906/28/18 [History] Lactulose 20 gm PO 1200,1700 06/28/18 [History] Lactulose [Enulose] 30 gm PO 0800,199906/28/18 [History] Loratadine [Allergy Relief] 10 mg PO 0800 06/28/18 [History] Melatonin 5 mg PO 199906/28/18 [History] Metoprolol [Lopressor] 12.5 mg PO BID 06/28/18 [History] Oxycodone HCl 5 mg PO Q4H PRN 06/28/18 [History] Pantoprazole Sodium [Protonix] 20 mg PO 199906/28/18 [History] Propranolol [Inderal] 10 mg PO 0800,1600 06/28/18 [History] Propranolol [Inderal] 20 mg PO 0800,159906/28/18 [History] Rifaximin [Xifaxan] 550 mg PO 0800,199906/28/18 [History] SUMAtriptan succinate [Imitrex] 25 mg PO QID PRN 06/28/18 [History] Spironolactone [Aldactone] 100 mg PO 0800 06/28/18 [History] Venlafaxine HCl [Venlafaxine HCl ER] 150 mg PO 0800 06/28/18 [History] Allergy/AdvReac Type Severity Reaction Status Date / Time tetanus and diphtheria Allergy Rash Verified 06/28/18 22:45 toxoids [Tetanus&Diphtheria Toxoid] omeprazole [From Prilosec] AdvReac Diarrhea Verified 06/28/18 22:45 All Systems Review: The remainder of the systems were reviewed and are negative - Constitutional Constitutional: no chills, no fever(s), no frequent falls - EENT Eyes: no loss of vision Nose, mouth and throat: no dysphagia - Cardiovascular Cardiovascular: dyspnea at rest, dyspnea on exertion, no chest pain at rest, no chest pain with exertion, no diaphoresis, no radiating jaw, neck or arm pain, no leg edema, no lightheadedness, no orthopnea, no palpitations, no paroxysmal nocturnal dyspnea, no syncope - Respiratory Respiratory: cough, dyspnea - Gastrointestinal Gastrointestinal: diarrhea, no abdominal pain, no constipation, no hematochezia, no melena - Genitourinary Genitourinary: dysuria, no hematuria - Musculoskeletal Musculoskeletal: arthralgias, muscle weakness - Integumentary Integumentary: no erythema, no unusual bruising - Neurological Neurological: numbness, tingling, no dizziness, no focal weakness, no loss of vision - Psychiatric Psychiatric: anxiety, depression - Hematological/Lymphatic Hematologic/Lymphatic: no easy bleeding Physical Examination Vital Signs, Last 4 Hours Pulse Resp BP Pulse Ox 06/29/18 12:09 89 18 116/72 95 General: Conversant, No Apparent Distress HEENT: Atraumatic, Normocephaly, Mucus Membranes Moist Neck: No JVD, Normal carotid pulses Cardiac: Reg Rate and Rhythm, Other (Systolic ejection murmur with diminished S2 with radiation to carotids) Lungs: Other (Coarse breath sounds with wheezing bilaterally) Neuro: Alert and responsive, No focal deficits noted Abdomen: Soft, Non-Tender Skin: No rashes noted on visualized skin Musculoskeletal: No Chest Wall Tenderness Extremities: No Clubbing, No Cyanosis, No Edema, Normal Pulses Results 06/29/18 01:28 06/29/18 01:28 Lab Results 06/28/18 06/28/18 06/28/18 16:51 16:51 16:51 WBC 4.7 Hgb 10.3 L Hct 34.5 L Plt Count 90 L INR 1.4 APTT 33.6 Sodium 134 L Potassium 4.3 Chloride 99 Carbon Dioxide 33 H BUN 16 Creatinine 0.67 Glucose 183 H Calcium 8.8 Total Bilirubin 1.9 H AST 35 ALT 19 Alkaline Phosphatase 223 H Troponin I 0.29 H* 06/28/18 06/28/18 06/29/18 18:04 18:04 01:28 WBC 5.3 6.2 Hgb 9.9 L 10.1 L Hct 32.9 L 33.6 L Plt Count 88 L 93 L INR 1.4 APTT Sodium Potassium Chloride Carbon Dioxide BUN Creatinine Glucose Calcium Total Bilirubin AST ALT Alkaline Phosphatase Troponin I 06/29/18 06/29/18 06/29/18 01:28 01:28 08:20 WBC Hgb Hct Plt Count INR APTT Sodium 137 Potassium 4.2 Chloride 98 Carbon Dioxide 33 H BUN 19 Creatinine 0.75 Glucose 155 H Calcium 9.0 Total Bilirubin AST ALT Alkaline Phosphatase Troponin I 0.24 H* 0.21 H* Consult Discharge Plan - Plan Referrals: NONE,PCP [Primary Care Provider] - < A - Last Filed: 06/30/18 07:53> Date of Encounter: 06/30/18 - Attending Attestation I have personally performed a face to face evaluation on this patient. I have reviewed and agree with the documented findings and care plan as documented by the resident. History and Exam by me shows: 63-year-old female with recently diagnosed severe aortic stenosis, admitted for altered mental status and shortness of breath with cough. She is yet to make a decision regarding aortic valve replacement. Encouraged to follow-up with her primary nut orchardist as outpatient in order to be set up for aortic valve replacement. Avoid vasodilators. Cautious diuresis. Thanks, Edwin Li MD [facility] Assessment and Plan Discussion w patient/family: The assessment and plan as outlined above was discussed with the patient and/or family members who expressed understanding and agreement. All questions were answered. Thank you for involving us in the care of your patient. Please call with any questions. History of Present Illness History of present illness: Ms. Reno is a 63 year old female All Systems Review: The remainder of the systems were reviewed and are negative Physical Examination Vital Signs, Last 4 Hours Temp Pulse Resp BP Pulse Ox 06/30/18 04:14 98.7 F 100 16 116/58 96 Results 06/30/18 05:46 06/30/18 05:46 Lab Results 06/29/18 06/30/18 06/30/18 08:20 05:46 05:46 WBC 5.6 Hgb 10.0 L Hct 33.6 L Plt Count 98 L Sodium 137 Potassium 4.1 Chloride 99 Carbon Dioxide 32 H BUN 17 Creatinine 0.79 Glucose 158 H Calcium 8.9 Magnesium 1.8 Troponin I 0.21 H*
[2018-06-29] MEDS: Heparin 25,000 UNIT/250 ML D5W 25,000 UNIT/250 ML IV.SOLN IVC SCH (17:24)
[2018-06-29] MEDS: Benzonatate 100 MG CAPSULE PO PRN ×2 (18:28→22:55)
[2018-06-29] MEDS: *HR* LORazepam 1 MG TABLET PO PRN (18:28)
[2018-06-29] MEDS: Insulin DETEMIR 100 UNIT/ML X5UNITS SQ SCH (21:51)
--- NOTE | 2018-06-30 00:25 | Internal Med Progress Note ---
Hospitalist Progress Note - Encounter Date of Encounter: 06/29/18 Time of Encounter: 19:00 - Subjective Interval History: SUBJECTIVE: The patient is a 63-year-old woman, who has had underlying liver cirrhosis. We admitted her with altered mental status, likely secondary to polypharmacy. She had elevated troponin of 0.29 in the emergency department; without any chest pain. She is better today. She talked to me. She knows her name. She knows that she is in the hospital. OBJECTIVE: Skin: Free of rash and discoloration. ENMT: Oral/pharyngeal mucosa is normal in appearance. Eyes: Sclera is white. There is no discharge from eyes. Respiratory: Normal breath sounds. I cannot hear any rhonchi or wheezes. CV: Heart is regular, with no gallop or murmur. GI: Abdomen is soft and not tender. There is no palpable mass or visceromegaly. Neuro: There is no focal deficits. ADDITIONAL DATA: Hemoglobin is 10.1 with normal WBC. Platelet count is 93,000 (chronic). BMP is normal. Ammonia from yesterday was 54. Troponin is 0.24; 0.29 yesterday. ASSESSMENT AND PLAN: Acute encephalopathic. Likely secondary to polypharmacy in a patient with und erlying liver cirrhosis. We reduced her medications/dosages. She had a large bowel movement today afternoon. I will repeat BMP and ammonia tomorrow morning. Elevated troponin (likely secondary to NSTEMI) and severe aortic stenosis. See notes from cardiology. The patient will be on IV heparin drip for 48 hours. Type 2 diabetes mellitus. Under fair control. Continue Levemir and when necessary Humalog. Hypertension. Under control. To continue low-dose Lopressor. Disposition: We will get evaluation from physical therapy. - Exam Vitals: Temp Pulse Resp BP Pulse Ox 98.8 F 105 18 107/63 92 06/29/18 21:18 06/29/18 21:18 06/29/18 21:18 06/29/18 21:18 06/29/18 21:50 Exam: xx - Assessment and Plan (1) Acute encephalopathy Current Visit: Yes Status: Acute (2) Cirrhosis Current Visit: No Status: Acute (3) Elevated troponin Current Visit: Yes Status: Acute (4) Aortic stenosis Current Visit: No Status: Chronic (5) Type II diabetes mellitus Current Visit: Yes Status: Chronic (6) Hypertension Current Visit: No Status: Chronic (7) Anxiety Current Visit: No Status: Acute (8) Depression Current Visit: Yes Status: Chronic - Time Spent with Patient Total time spent is greater than 50% in coordination of care (as documented) at patient's floor/unit and/or counseling patient: 25 - 35 minutes Plan of Care Discussed with: patient Internal Medicine: Result - Labs CBC & Chem 7: 06/29/18 01:28 06/29/18 01:28 Labs: Short CBC 06/29/18 Range/Units 01:28 WBC 6.2 (4.3-11.1) K/mcL Hgb 10.1 L (11.5-15.4) g/dL Hct 33.6 L (35.3-44.9) % Plt Count 93 L (140-400) K/mcL Neutrophils # 5.0 (1.6-8.9) K/mcL BMP 06/29/18 01:28 Sodium 137 Potassium 4.2 Chloride 98 Carbon Dioxide 33 H BUN 19 Creatinine 0.75 Glucose 155 H Calcium 9.0 Cardiac Enzymes 06/29/18 06/29/18 Range/Units 01:28 08:20 Troponin I 0.24 H* 0.21 H* (< 0.04) ng/mL - ABG Interpretation ABG results: PT/INR, D-dimer PT 15.5 Seconds (9.4-12.1) H 06/28/18 18:04 Consult Discharge Plan - Plan Referrals: NONE,PCP [Primary Care Provider] - (2) Cirrhosis Qualifiers: Hepatic cirrhosis type: other cirrhosis Qualified Code(s): K74.69 - Other cirrhosis of liver (4) Aortic stenosis Qualifiers: Cardiac valve disease etiology: etiology unspecified Qualified Code(s): I35.0 - Nonrheumatic aortic (valve) stenosis (5) Type II diabetes mellitus Qualifiers: Diabetes mellitus middle or intermediate school principal insulin use: with residential use Diabetes mellitus complication status: with unspecified complications Qualified Code(s): E11.8 - Type 2 diabetes mellitus with unspecified complications; Z79.4 - alf (current) use of insulin (6) Hypertension Qualifiers: Hypertension type: essential hypertension Qualified Code(s): I10 - Essential (primary) hypertension (8) Depression Qualifiers: Depression Type: major depressive disorder Major depression recurrence: unspecified whether recurrent Active/Remission status: remission status unspecified Qualified Code(s): F32.9 - Major depressive disorder, single episode, unspecified
[2018-06-30 05:58] LABS: Basophils % 0.5 %; Immature Granulocytes % 0.4 % (0-4); Lymphocytes % 8.7 %; Mean Corpuscular Hemoglobin 27.4 pg (28.0-33.3); Mean Platelet Volume 9.7 fL (9.4-12.4); Red Blood Count 3.65 M/mcL (3.82-4.97); Red Cell Distribution Width 16.9 % (11.5-14.5)
[2018-06-30 06:00] LABS: Eosinophils # 0.1 K/mcL (0.0-0.6); Eosinophils % 2.5 %; Hematocrit 33.6 % (35.3-44.9); Immature Platelets 1.8 % (1.1-6.1); Lymphocytes # 0.5 K/mcL (0.6-4.6); Mean Corpuscular HGB Conc 29.8 g/dL (31.6-35.5); Mean Corpuscular Volume 92.1 fL (83.0-100.0); Monocytes # 0.6 K/mcL (0.0-1.3); Monocytes % 9.8 %; Neutrophils # 4.4 K/mcL (1.6-8.9); Platelet Count 98 K/mcL (140-400); Segmented Neutrophils % 78.1 %
[2018-06-30 06:19] LABS: BUN/Creatinine Ratio 22 (6-26); Blood Urea Nitrogen 17 mg/dL (8-23); Calcium 8.9 mg/dL (8.6-10.3); Carbon Dioxide 32 mEq/L (23-29); Chloride 99 mEq/L (98-107); Glucose 158 mg/dL (70-105); Magnesium 1.8 mg/dL (1.6-2.6); Osmolality,Calculated 289 (280-300); Potassium 4.1 mEq/L (3.5-5.1); Sodium 137 mEq/L (136-145); eGFR For Non-African Americans > 60 (> 60)
[2018-06-30] MEDS: Lactulose Oral Soln 20 GM/30 ML UDC PO SCH ×3 (08:43→22:12)
[2018-06-30] MEDS: Insulin LISPRO 300 UNITS/3 ML VIAL SQ SCH ×4 (08:44→22:12)
[2018-06-30] MEDS: Lactobacillus 1 EACH CAP.SPRINK PO SCH ×2 (08:44→22:10)
[2018-06-30] MEDS: Furosemide 40 MG TABLET PO SCH (08:44)
[2018-06-30] MEDS: Heparin 25,000 UNIT/250 ML D5W 25,000 UNIT/250 ML IV.SOLN IVC SCH (08:50)
--- NOTE | 2018-06-30 13:43 | Internal Med Progress Note ---
Hospitalist Progress Note - Encounter Date of Encounter: 06/30/18 Time of Encounter: 13:42 - Subjective Interval History: Pt feesl OK, stated that she was in rehab and became unresponsivre. No other issues. - Exam Vitals: Temp Pulse Resp BP Pulse Ox 98.7 F 90 18 108/70 95 06/30/18 04:14 06/30/18 11:46 06/30/18 11:46 06/30/18 11:46 06/30/18 11:46 Exam: Gen: A+O x 3, wewak appearing Heart: S1, S2, RRR lungs: CTAB, no w/c/r abd: protuberant LE: 2+ pitting edema - Summary of Assessment and Plan Summary of Assessment and Plan: This is a 63 yof who presetnsn with NSTEMI 1) NSETMI: etiolgoy not clear, card deciding on filiberto out pt vs. in pt ddx: myocarditis vs. ischemic diease vs. endocarditis vs arrytmia induced At this point, pt is on beta emi and we will defer to cardiolgoy 2) metabolic encephlopahty will increase lactulose to see how pt does 3) polypharmacy: we will adjust the pain meds, pt currently is on minimal dose 4)debility: from rehab, will need to go back to rehab 5)code: Full code 6)dispo: To rehab when cardiolgoy deems satisfied Time: 35 min - Time Spent with Patient Total time spent is greater than 50% in coordination of care (as documented) at patient's floor/unit and/or counseling patient: Internal Medicine: Result - Labs CBC & Chem 7: 06/30/18 05:46 06/30/18 05:46 Labs: Short CBC 06/30/18 Range/Units 05:46 WBC 5.6 (4.3-11.1) K/mcL Hgb 10.0 L (11.5-15.4) g/dL Hct 33.6 L (35.3-44.9) % Plt Count 98 L (140-400) K/mcL Neutrophils # 4.4 (1.6-8.9) K/mcL BMP 06/30/18 05:46 Sodium 137 Potassium 4.1 Chloride 99 Carbon Dioxide 32 H BUN 17 Creatinine 0.79 Glucose 158 H Calcium 8.9 - ABG Interpretation ABG results: PT/INR, D-dimer PT 15.5 Seconds (9.4-12.1) H 06/28/18 18:04 Consult Discharge Plan - Plan Referrals: NONE,PCP [Primary Care Provider] -
[2018-06-30] MEDS: Benzonatate 100 MG CAPSULE PO PRN ×2 (14:44→22:10)
[2018-06-30] MEDS: *HR* LORazepam 1 MG TABLET PO PRN (16:21)
--- NOTE | 2018-06-30 16:52 | Cardiology Progress Note ---
Date of Encounter: 06/30/18 Time of Encounter: 10:00 Assessment and Plan (1) Severe aortic stenosis Current Visit: Yes Status: Acute Symptomatic severe aortic stenosis warrants AVR. Patient has multiple comorbidities including metabolic encephalopathy in the setting of chronic liver disease with thrombocytopenia. Recommend recovery from acute illness, and she would follow up with her leather heel breaster Dr. Echols, as outpatient to discuss cardiac intervention. Upon patient request, I did discuss with her daughter and sister the diagnosis and need for follow-up. Avoid vasodilators. Cautious diuresis Discussion w patient/family: The assessment and plan as outlined above was discussed with the patient and/or family members who expressed understanding and agreement. All questions were answered. Thank you for involving us in the care of your patient. Please call with any questions. Subjective Principal diagnosis: Altered mental status Interval history: Patient is feeling better, she is more lucid today. I discussed with her diagnosis of severe aortic stenosis and the need to have it fixed. She states she would like to think about it and discuss with her daughter Iman and her sister Elinor Objective Vital Signs, Last 4 Hours Pulse Resp BP Pulse Ox 06/30/18 15:46 100 17 90/57 90 General: Conversant HEENT: Atraumatic Cardiac: Reg Rate and Rhythm, Other (Soft S2, late peaking crescendo decrescendo murmur in the aortic area radiating to the carotids) Lungs: Normal Breath Sounds Neuro: Alert and responsive Abdomen: Soft Extremities: No Edema Results 06/30/18 05:46 06/30/18 05:46 Lab Results 06/30/18 06/30/18 05:46 05:46 WBC 5.6 Hgb 10.0 L Hct 33.6 L Plt Count 98 L Sodium 137 Potassium 4.1 Chloride 99 Carbon Dioxide 32 H BUN 17 Creatinine 0.79 Glucose 158 H Calcium 8.9 Magnesium 1.8 Consult Discharge Plan - Plan Referrals: NONE,PCP [Primary Care Provider] -
[2018-06-30] MEDS: Insulin DETEMIR 100 UNIT/ML X5UNITS SQ SCH (22:11)
[2018-07-01] MEDS: *HR* LORazepam 1 MG TABLET PO PRN ×2 (00:20→11:22)
[2018-07-01] MEDS: Heparin 25,000 UNIT/250 ML D5W 25,000 UNIT/250 ML IV.SOLN IVC SCH ×2 (03:01→21:11)
[2018-07-01] MEDS: Furosemide 40 MG TABLET PO SCH (09:02)
[2018-07-01] MEDS: Lactobacillus 1 EACH CAP.SPRINK PO SCH ×2 (09:02→21:03)
[2018-07-01] MEDS: Lactulose Oral Soln 20 GM/30 ML UDC PO SCH ×3 (09:04→21:04)
[2018-07-01] MEDS: Insulin LISPRO 300 UNITS/3 ML VIAL SQ SCH ×4 (09:05→21:07)
--- NOTE | 2018-07-01 12:33 | Discharge Summary ---
Orders not resulted at time of discharge: Pending orders 07/02/18 05:30 Heparin anti-factor XA UFH [COAG] Timed Date of Encounter: 07/01/18 Time of Encounter: 12:29 - Discharge Diagnosis (1) DVT prophylaxis Priority: Primary Status: Acute (2) Elevated troponin Priority: Primary Status: Acute (3) Hyperammonemia Priority: Primary Status: Acute (4) NSTEMI (non-ST elevated myocardial infarction) Priority: Primary Status: Acute (5) Severe aortic stenosis Priority: Primary Status: Acute Hospital course: Ms. Reno is a 63 year old obese female with past medical history of cirrhosis suspected secondary to hepatic steatosis, diabetes mellitus, hypertension, anxiety and depression who was presented to the ED from her nursing facility after what was believed to be altered mental status. She is at the outside nursing facility for rehab after hip fracture in April. At the nursing facility she was believed to have lethargy subsequently resulting in her current addmission. Upon arrival to the ED she was alert and oriented x3. During discussion with the patient she reported the nursing staff likely assumed her to be altered to due her chronic daytime somlonece and culmination of her chronic pain medication and ativan. Pt was kept in the hospital and the lacutlose was changed to TID, tp was found to have NSTEMI, and cardiolgo saw the pt. The cardiolgoy deemed that NSETMI was due to , and given the risk of the filiberto, they prefer to defer this to a later time. Pt is back to baseline, no other issues, pt will be discharged. Time: 35min - Time Spent with Patient Total time spent providing and/or coordinating discharge services: - Discharge Medications Prescriptions: No Action Insulin Regular, Human [Novolin R] 10 unit IJ 0800,1200,1600 Insulin NPH Human Isophane [Novolin N] 45 unit SQ 0800,2000 Ipratropium/Albuterol Neb [Duoneb] 3 ml IH Q6HR Pantoprazole Sodium [Protonix] 20 mg PO 2000 Lactobacillus Acidophilus [Acidophilus] 1 each PO 0800,2000 Rifaximin [Xifaxan] 550 mg PO 0800,2000 Propranolol [Inderal] 20 mg PO 0800,1600 Metoprolol [Lopressor] 12.5 mg PO BID Citalopram [CeleXA] 20 mg PO 0800 Furosemide [Lasix] 40 mg PO 0800 Venlafaxine HCl [Venlafaxine HCl ER] 150 mg PO 0800 SUMAtriptan succinate [Imitrex] 25 mg PO QID PRN PRN Reason: Migraine Headache Spironolactone [Aldactone] 100 mg PO 0800 Melatonin 5 mg PO 1999 LORazepam [Ativan] 1 mg PO BID PRN PRN Reason: Anxiety Loratadine [Allergy Relief] 10 mg PO 0800 Lactulose [Enulose] 30 gm PO 0800,1999 Guaifenesin [Mucinex] 600 mg PO BID PRN PRN Reason: Cough Oxycodone HCl 5 mg PO Q4H PRN PRN Reason: Pain Propranolol [Inderal] 10 mg PO 0800,1600 Lactulose 20 gm PO 1200,1700 Home Medications: Citalopram [CeleXA] 20 mg PO 0800 06/28/18 [History] Furosemide [Lasix] 40 mg PO 0800 06/28/18 [History] Guaifenesin [Mucinex] 600 mg PO BID PRN 06/28/18 [History] Insulin NPH Human Isophane [Novolin N] 45 unit SQ 0800,199906/28/18 [History] Insulin Regular, Human [Novolin R] 10 unit IJ 0800,1200,1600 06/28/18 [History] Ipratropium/Albuterol Neb [Duoneb] 3 ml IH Q6HR 06/28/18 [History] LORazepam [Ativan] 1 mg PO BID PRN 06/28/18 [History] Lactobacillus Acidophilus [Acidophilus] 1 each PO 0800,199906/28/18 [History] Loratadine [Allergy Relief] 10 mg PO 0800 06/28/18 [History] Melatonin 5 mg PO 199906/28/18 [History] Metoprolol [Lopressor] 12.5 mg PO BID 06/28/18 [History] Pantoprazole Sodium [Protonix] 20 mg PO 199906/28/18 [History] Propranolol [Inderal] 10 mg PO 0800,1600 06/28/18 [History] Rifaximin [Xifaxan] 550 mg PO 0800,199906/28/18 [History] SUMAtriptan succinate [Imitrex] 25 mg PO QID PRN 06/28/18 [History] Spironolactone [Aldactone] 100 mg PO 0800 06/28/18 [History] Venlafaxine HCl [Venlafaxine HCl ER] 150 mg PO 0800 06/28/18 [History] Lactulose [Enulose] 30 gm PO TID #30 solution 07/01/18 [Rx] Allergies/Adverse Reactions: Allergy/AdvReac Type Severity Reaction Status Date / Time tetanus and diphtheria Allergy Rash Verified 06/28/18 22:45 toxoids [Tetanus&Diphtheria Toxoid] omeprazole [From Prilosec] AdvReac Diarrhea Verified 06/28/18 22:45 Date of admission: 06/30/18 15:57 Primary care physician: PCP NONE Consults: 06/28/18 23:37 Consult to Cardiology [CONS] Routine Comment: Consulting Provider: Cardiology Araceli Reason for Consult: Elevated troponin Call Completed: No 06/29/18 00:11 Consult to Refrigeration Engineering Teacher [CONS] Routine Reason for SW Consult: patient currently came from [facility] for rehab will need f/u upon D/C 06/30/18 00:33 Consult to Physical Therapy [CONS] Routine Comment: Evaluate, develop and implement POC Reason for Consult: Debility Does patient have active BEDREST order?: No Is patient medically & hemodynamically stable?: Yes 06/30/18 11:26 Consult to Occupational Therapy [CONS] Routine Comment: Evaluate, develop and implement POC Reason for Consult: Will need insurance pre-auth to return to [facility]CF; PT already consulted. Patient is a possible discharge today! Does patient have active BEDREST order?: No Is patient medically & hemodynamically stable?: Yes - Constitutional Vitals: Temp Pulse Resp BP Pulse Ox 98.4 F 116 18 133/78 98 07/01/18 04:27 07/01/18 07:41 07/01/18 07:41 07/01/18 07:41 07/01/18 07:41 Exam: Gen: A+O x 3, wewak appearing Heart: S1, S2, RRR lungs: CTAB, no w/c/r abd: protuberant LE: 2+ pitting edema - Patient Status Disposition: Transfer Inpatient Rehab Fac Condition: Fair - Discharge Instructions Follow Up With: NONE,PCP [Primary Care Provider] -
--- NOTE | 2018-07-01 12:40 | Physician Discharge Referral ---
ExtendedCare Referral Info Transfer To: longterm facility - Diagnosis (1) DVT prophylaxis Status: Acute (2) Elevated troponin Status: Acute (3) Hyperammonemia Status: Acute (4) NSTEMI (non-ST elevated myocardial infarction) Priority: Primary Status: Acute (5) Severe aortic stenosis Status: Acute - Transfer Medications Prescriptions: Lactulose [Enulose] 30 gm PO TID #30 solution Home Medications: Citalopram [CeleXA] 20 mg PO 0800 06/28/18 [History] Furosemide [Lasix] 40 mg PO 0800 06/28/18 [History] Guaifenesin [Mucinex] 600 mg PO BID PRN 06/28/18 [History] Insulin NPH Human Isophane [Novolin N] 45 unit SQ 0800,199906/28/18 [History] Insulin Regular, Human [Novolin R] 10 unit IJ 0800,1200,1600 06/28/18 [History] Ipratropium/Albuterol Neb [Duoneb] 3 ml IH Q6HR 06/28/18 [History] LORazepam [Ativan] 1 mg PO BID PRN 06/28/18 [History] Lactobacillus Acidophilus [Acidophilus] 1 each PO 0800,199906/28/18 [History] Loratadine [Allergy Relief] 10 mg PO 0800 06/28/18 [History] Melatonin 5 mg PO 199906/28/18 [History] Metoprolol [Lopressor] 12.5 mg PO BID 06/28/18 [History] Pantoprazole Sodium [Protonix] 20 mg PO 199906/28/18 [History] Propranolol [Inderal] 10 mg PO 0800,1600 06/28/18 [History] Rifaximin [Xifaxan] 550 mg PO 0800,199906/28/18 [History] SUMAtriptan succinate [Imitrex] 25 mg PO QID PRN 06/28/18 [History] Spironolactone [Aldactone] 100 mg PO 0800 06/28/18 [History] Venlafaxine HCl [Venlafaxine HCl ER] 150 mg PO 0800 06/28/18 [History] Lactulose [Enulose] 30 gm PO TID #30 solution 07/01/18 [Rx] Allergies/Adverse Reactions: Allergy/AdvReac Type Severity Reaction Status Date / Time tetanus and diphtheria Allergy Rash Verified 06/28/18 22:45 toxoids [Tetanus&Diphtheria Toxoid] omeprazole [From Prilosec] AdvReac Diarrhea Verified 06/28/18 22:45 - Respiratory Orders Smoking Cessation: Smoking cessation has been advised. For more information, call the [place] Tobacco Quit Line at 6-631-HAFO-NOW. CERTIFICATION: I certify that the transfer of the above named patient to an Extended Care Facility is necessary for the continuing treatment of the diagnosis listed. The above information is true and accurate reflection of patient's current condition. Confidential - Redisclosure prohibited without a patient's written consent.
[2018-07-01] MEDS ORDERED: *HR* LORazepam 0.5 MG TABLET PO ONE (20:19)
[2018-07-01] MEDS: Insulin DETEMIR 100 UNIT/ML X5UNITS SQ SCH (21:07)
[2018-07-01] MEDS: Benzonatate 100 MG CAPSULE PO PRN (21:18)
[2018-07-02] MEDS: Benzonatate 100 MG CAPSULE PO PRN (04:30)
[2018-07-02] MEDS: Lactobacillus 1 EACH CAP.SPRINK PO SCH (10:10)
[2018-07-02] MEDS: Lactulose Oral Soln 20 GM/30 ML UDC PO SCH (10:10)
[2018-07-02] MEDS: Furosemide 40 MG TABLET PO SCH (10:10)
[2018-07-02] MEDS: Insulin LISPRO 300 UNITS/3 ML VIAL SQ SCH ×3 (10:14→16:36)
[2018-07-02] MEDS: *HR* LORazepam 1 MG TABLET PO PRN (11:28)
--- NOTE | 2018-07-02 11:28 | Internal Med Progress Note ---
Hospitalist Progress Note - Encounter Date of Encounter: 07/02/18 Time of Encounter: 11:27 - Subjective Interval History: Pt is not happy that her [employer] company is taking time for the pre- aruthorication. She asked me which insurance. She now wants to be a full code. - Exam Vitals: Temp Pulse Resp BP Pulse Ox 98.3 F 110 21 111/73 96 07/02/18 07:59 07/02/18 07:59 07/02/18 07:59 07/02/18 07:59 07/02/18 07:59 Exam: Gen: A+O x 3, wewak appearing Heart: S1, S2, RRR lungs: CTAB, no w/c/r abd: protuberant LE: 2+ pitting edema - Assessment and Plan (1) DVT prophylaxis Current Visit: Yes Status: Acute (2) Elevated troponin Current Visit: Yes Status: Acute (3) Hyperammonemia Current Visit: Yes Status: Acute (4) NSTEMI (non-ST elevated myocardial infarction) Current Visit: Yes Status: Acute (5) Severe aortic stenosis Current Visit: Yes Status: Acute - Summary of Assessment and Plan Summary of Assessment and Plan: 1) NSETMI: etiolgoy not clear, card deciding on filiberto out pt vs. in pt ddx: myocarditis vs. ischemic diease vs. endocarditis vs arrytmia induced Cardiolgoy saw the pt and deems that most liklely, this pt has aortic stenossi which is severe that cuased her symptomas of syncope. Unfortunately, pt is not a candidate even for filiberto now. 2) metabolic encephlopahty will increase lactulose to see how pt does 3) polypharmacy: we will adjust the pain meds, pt currently is on minimal dose 4)debility: from rehab, will need to go back to rehab 5)code: Full code 6)dispo: To rehab when insurance approves. Time: 35 min - Time Spent with Patient Total time spent is greater than 50% in coordination of care (as documented) at patient's floor/unit and/or counseling patient: Internal Medicine: Result - Labs CBC & Chem 7: 06/30/18 05:46 06/30/18 05:46 - ABG Interpretation ABG results: PT/INR, D-dimer PT 15.5 Seconds (9.4-12.1) H 06/28/18 18:04 Consult Discharge Plan - Plan Referrals: NONE,PCP [Primary Care Provider] - Prescriptions: Lactulose [Enulose] 30 gm PO TID #30 solution
[2018-07-02 12:14] LABS: BUN/Creatinine Ratio 21 (6-26); Blood Urea Nitrogen 15 mg/dL (8-23); Calcium 8.5 mg/dL (8.6-10.3); Carbon Dioxide 31 mEq/L (23-29); Chloride 100 mEq/L (98-107); Glucose 307 mg/dL (70-105); Osmolality,Calculated 288 (280-300); Potassium 4.2 mEq/L (3.5-5.1); Sodium 133 mEq/L (136-145); eGFR For Non-African Americans > 60 (> 60)
[2018-07-02] MEDS ORDERED: Lactulose Oral Soln 20 GM/30 ML UDC PO SCH (15:00)
[2018-07-02 16:32] VITALS: BP 103/89
== END 2018-07-02 17:41 | DRG 280 ==
LOC: 2NENU 16:16 → EMEROOARM 16:16 → SUATTDRO 18:51 → 2NENU 20:24
PROVIDERS: ADMIT Student in an Organized Health Care Education/Training Program; ATTEND Internal Medicine

== ENCOUNTER 2019-04-23 09:06 | Inpatient (IN) ==
[2019-04-23] MEDS ORDERED: Ipratropium/Albuterol Neb 3 ML IH ONE (09:21)
[2019-04-23] MEDS ORDERED: methylPREDNISolone 125 MG/2 ML VIAL IVP ONE (09:21)
[2019-04-23] MEDS ORDERED: Ipratropium/Albuterol Neb 3 ML ONE (09:42)
[2019-04-23 09:50] LABS: Basophils % 0.9 %; Eosinophils % 2.3 %; Hematocrit 30.6 % (35.3-44.9); Monocytes % 8.4 %; Red Cell Distribution Width 17.4 % (11.5-14.5)
[2019-04-23 09:52] LABS: Eosinophils # 0.1 K/mcL (0.0-0.6); Hemoglobin 8.2 g/dL (11.5-15.4); Immature Granulocytes % 0.2 % (0-4); Lymphocytes # 0.3 K/mcL (0.6-4.6); Lymphocytes % 7.4 %; Mean Corpuscular HGB Conc 26.8 g/dL (31.6-35.5); Mean Corpuscular Hemoglobin 22.6 pg (28.0-33.3); Mean Corpuscular Volume 84.3 fL (83.0-100.0); Mean Platelet Volume 10.8 fL (9.4-12.4); Monocytes # 0.4 K/mcL (0.0-1.3); Neutrophils # 3.5 K/mcL (1.6-8.9); Red Blood Count 3.63 M/mcL (3.82-4.97); Segmented Neutrophils % 80.8 %; White Blood Count 4.3 K/mcL (4.3-11.1)
[2019-04-23 09:56] LABS: INR 1.3; Prothrombin Time 15.2 Seconds (9.4-12.1)
[2019-04-23 09:59] LABS: Activated Partial Thrombo Time 32.1 Seconds (26.0-36.0)
[2019-04-23 10:01] LABS: Platelet Count 93 K/mcL (140-400)
[2019-04-23 10:24] LABS: BUN/Creatinine Ratio 23 (6-26); Blood Urea Nitrogen 17 mg/dL (8-23); Calcium 8.7 mg/dL (8.6-10.3); Carbon Dioxide 37 mEq/L (23-29); Chloride 99 mEq/L (98-107); Glucose 230 mg/dL (70-105); Osmolality,Calculated 293 (280-300); Potassium 4.1 mEq/L (3.5-5.1); Sodium 137 mEq/L (136-145); Troponin I < 0.03 ng/mL (< 0.04); eGFR For African Americans > 60 (> 60); eGFR For Non-African Americans > 60 (> 60)
[2019-04-23] MEDS ORDERED: Azithromycin 500 MG in 0.9 % Sodium Chloride 250 ML IVPB ONE (10:33)
[2019-04-23] MEDS ORDERED: cefTRIAXone 1,000 MG in Water for inj. (sterile) 10 ML IVP ONE (10:33)
[2019-04-23] MEDS ORDERED: Naloxone 0.4 MG/ML INJ IVP PRN (11:40)
[2019-04-23] MEDS ORDERED: D5% in Water 1,000 ML IVC PRN (11:41)
[2019-04-23] MEDS ORDERED: *HR* Dextrose 50 % in Water (Syg) 50 ML SYRINGE IVP PRN (11:41)
[2019-04-23] MEDS ORDERED: Dextrose Gel 15 GM/37.5 ML TUBE PO PRN ×2 (11:41)
[2019-04-23 12:06] LABS: VBG HCO3 37 mEq/L (21-27); VBG PCO2 73 mmHg (41-51); VBG PH 7.32 pH Units (7.32-7.42); VBG PO2 48 mmHg (25-50)
[2019-04-23] MEDS: Insulin LISPRO 300 UNITS/3 ML VIAL SQ SCH (18:02)
[2019-04-23] MEDS: *HR* Heparin 5,000 UNIT/ML VIAL SQ SCH (18:11)
[2019-04-23] MEDS: Albuterol 2.5 MG/3 ML NEBULIZER IH PRN (18:22)
[2019-04-23] MEDS: Lactulose Oral Soln 20 GM/30 ML UDC PO SCH (20:23)
[2019-04-23] MEDS: Insulin DETEMIR 100 UNIT/ML X5UNITS SQ SCH (20:23)
[2019-04-24] MEDS: Ondansetron 4 MG/2 ML VIAL IVP PRN (00:07)
[2019-04-24] MEDS: *HR* Heparin 5,000 UNIT/ML VIAL SQ SCH (05:04)
[2019-04-24 06:33] LABS: Eosinophils % 0.2 %; Immature Granulocytes % 0.2 % (0-4)
[2019-04-24 06:35] LABS: Hematocrit 26.5 % (35.3-44.9); Hemoglobin 7.3 g/dL (11.5-15.4); Lymphocytes # 0.4 K/mcL (0.6-4.6); Lymphocytes % 9.8 %; Mean Corpuscular HGB Conc 27.5 g/dL (31.6-35.5); Mean Corpuscular Hemoglobin 22.9 pg (28.0-33.3); Mean Corpuscular Volume 83.1 fL (83.0-100.0); Mean Platelet Volume 10.4 fL (9.4-12.4); Monocytes # 0.4 K/mcL (0.0-1.3); Monocytes % 9.3 %; Neutrophils # 3.3 K/mcL (1.6-8.9); Red Blood Count 3.19 M/mcL (3.82-4.97); Red Cell Distribution Width 17.8 % (11.5-14.5); Segmented Neutrophils % 80.5 %; White Blood Count 4.1 K/mcL (4.3-11.1)
[2019-04-24 06:39] LABS: VBG HCO3 38 mEq/L (21-27); VBG PCO2 63 mmHg (41-51); VBG PH 7.39 pH Units (7.32-7.42); VBG PO2 82 mmHg (25-50)
[2019-04-24 06:40] LABS: Platelet Count 85 K/mcL (140-400)
[2019-04-24 07:05] LABS: BUN/Creatinine Ratio 31 (6-26); Blood Urea Nitrogen 21 mg/dL (8-23); Calcium 8.5 mg/dL (8.6-10.3); Carbon Dioxide 36 mEq/L (23-29); Chloride 99 mEq/L (98-107); Glucose 195 mg/dL (70-105); Osmolality,Calculated 290 (280-300); Potassium 4.4 mEq/L (3.5-5.1); Sodium 136 mEq/L (136-145); eGFR For African Americans > 60 (> 60); eGFR For Non-African Americans > 60 (> 60)
[2019-04-24] MEDS: Azithromycin 500 MG in 0.9 % Sodium Chloride 250 ML IVPB SCH (08:19)
[2019-04-24] MEDS: cefTRIAXone 1,000 MG in Water for inj. (sterile) 10 ML IVP SCH (08:19)
[2019-04-24] MEDS: Insulin LISPRO 300 UNITS/3 ML VIAL SQ SCH ×3 (08:20→17:25)
[2019-04-24] MEDS: Lactulose Oral Soln 20 GM/30 ML UDC PO SCH ×2 (08:34→20:21)
[2019-04-24 08:47] LABS: Hematocrit 29.1 % (35.3-44.9); Hemoglobin 7.9 g/dL (11.5-15.4)
[2019-04-24] MEDS ORDERED: MethylPREDNISolone 40 MG/ML VIAL IVP SCH (09:00)
[2019-04-24 09:02] LABS: Albumin 2.5 g/dL (3.5-5.7); Albumin/Globulin Ratio 0.6 (1.1-2.2); Bilirubin,Direct 0.4 mg/dL (0.0-0.2); Bilirubin,Indirect 0.8 mg/dL (0.0-1.0); Bilirubin,Total 1.2 mg/dL (0.3-1.0); Globulin 4.3 g/dL (2.4-3.5); Total Protein 6.8 g/dL (6.4-8.9)
[2019-04-24 11:05] LABS: Adenovirus Not Detected (Not Detect); Coronavirus 229E Not Detected (Not Detect)
[2019-04-24 11:06] LABS: Bordetella Pertussis Not Detected (Not Detect); Chlamydophila pneumoniae Not Detected (Not Detect); Coronavirus HKU1 DETECTED (Not Detect); Coronavirus NL63 Not Detected (Not Detect); Coronavirus OC43 Not Detected (Not Detect); Human Metapneumovirus Not Detected (Not Detect); Human Rhinovirus/Enterovirus Not Detected (Not Detect); Influenza A Subtype 2009 H1 Not Detected (Not Detect); Influenza B Not Detected (Not Detect); Mycoplasma pneumoniae Not Detected (Not Detect); Parainfluenza Virus 1 Not Detected (Not Detect); Parainfluenza Virus 2 Not Detected (Not Detect); Parainfluenza Virus 3 Not Detected (Not Detect); Parainfluenza Virus 4 Not Detected (Not Detect); Respiratory Syncytial Virus Not Detected (Not Detect)
[2019-04-24 14:04] LABS: Hematocrit 28.3 % (35.3-44.9); Hemoglobin 7.6 g/dL (11.5-15.4)
[2019-04-24] MEDS: Insulin DETEMIR 100 UNIT/ML X5UNITS SQ SCH (21:04)
[2019-04-24] MEDS: Albuterol 2.5 MG/3 ML NEBULIZER IH PRN (21:47)
[2019-04-25] MEDS: Albuterol 2.5 MG/3 ML NEBULIZER IH PRN ×2 (01:00→08:10)
[2019-04-25 05:24] LABS: Hemoglobin 7.5 g/dL (11.5-15.4); Immature Granulocytes % 0.2 % (0-4); Red Cell Distribution Width 18.3 % (11.5-14.5); Red Cell Distribution Width 18.5 % (11.5-14.5)
[2019-04-25 05:25] LABS: Hematocrit 27.7 % (35.3-44.9); Mean Corpuscular HGB Conc 27.1 g/dL (31.6-35.5); Mean Corpuscular Hemoglobin 22.6 pg (28.0-33.3); Mean Corpuscular Volume 83.4 fL (83.0-100.0); Mean Platelet Volume 10.7 fL (9.4-12.4); Red Blood Count 3.32 M/mcL (3.82-4.97); White Blood Count 4.3 K/mcL (4.3-11.1)
[2019-04-25 05:26] LABS: Basophils % 0.2 %; Eosinophils % 0.7 %; Hematocrit 28.8 % (35.3-44.9); Lymphocytes # 0.5 K/mcL (0.6-4.6); Lymphocytes % 11.5 %; Mean Corpuscular Hemoglobin 21.9 pg (28.0-33.3); Mean Corpuscular Volume 84.2 fL (83.0-100.0); Mean Platelet Volume 10.9 fL (9.4-12.4); Monocytes # 0.5 K/mcL (0.0-1.3); Monocytes % 11.5 %; Neutrophils # 3.2 K/mcL (1.6-8.9); Red Blood Count 3.42 M/mcL (3.82-4.97); Segmented Neutrophils % 75.9 %; White Blood Count 4.2 K/mcL (4.3-11.1)
[2019-04-25 05:37] LABS: INR 1.5; Prothrombin Time 16.8 Seconds (9.4-12.1)
[2019-04-25 05:46] LABS: Platelet Count 91 K/mcL (140-400); Platelet Count 95 K/mcL (140-400)
[2019-04-25 06:25] LABS: Alanine Aminotransferase 10 Units/L (7-52); Albumin 2.5 g/dL (3.5-5.7); Albumin/Globulin Ratio 0.6 (1.1-2.2); Alkaline Phosphatase 134 Units/L (34-104); Aspartate Amino Transferase 25 Units/L (13-39); BUN/Creatinine Ratio 30 (6-26); Bilirubin,Direct 0.4 mg/dL (0.0-0.2); Bilirubin,Indirect 0.7 mg/dL (0.0-1.0); Bilirubin,Total 1.1 mg/dL (0.3-1.0); Blood Urea Nitrogen 21 mg/dL (8-23); Calcium 8.4 mg/dL (8.6-10.3); Carbon Dioxide 36 mEq/L (23-29); Chloride 100 mEq/L (98-107); Globulin 4.3 g/dL (2.4-3.5); Glucose 213 mg/dL (70-105); Osmolality,Calculated 291 (280-300); Sodium 136 mEq/L (136-145); Total Protein 6.8 g/dL (6.4-8.9); eGFR For African Americans > 60 (> 60); eGFR For Non-African Americans > 60 (> 60)
[2019-04-25] MEDS: Azithromycin 500 MG in 0.9 % Sodium Chloride 250 ML IVPB SCH (09:27)
[2019-04-25] MEDS: predniSONE 20 MG TABLET PO SCH (09:28)
[2019-04-25] MEDS: Lactulose Oral Soln 20 GM/30 ML UDC PO SCH ×2 (09:28→20:57)
[2019-04-25] MEDS: cefTRIAXone 1,000 MG in Water for inj. (sterile) 10 ML IVP SCH (09:29)
[2019-04-25] MEDS: Insulin LISPRO 300 UNITS/3 ML VIAL SQ SCH ×3 (09:29→17:44)
[2019-04-25] MEDS: Ondansetron 4 MG/2 ML VIAL IVP PRN ×2 (10:27→20:57)
[2019-04-25] MEDS ORDERED: Clotrimazole/Betameth Dip CRM 45 APPL/45 GM TUBE TP PRN (13:19)
[2019-04-25] MEDS ORDERED: Ondansetron ODT 4 MG TAB.RAPDIS SL PRN (13:19)
[2019-04-25] MEDS: Levalbuterol Neb 1.25 MG/3 ML IH SCH ×2 (15:45→21:29)
[2019-04-25] MEDS: Insulin DETEMIR 100 UNIT/ML X5UNITS SQ SCH (20:57)
[2019-04-25] MEDS ORDERED: Insulin LISPRO 300 UNITS/3 ML VIAL SQ SCH (22:15)
[2019-04-26] MEDS: Levalbuterol Neb 1.25 MG/3 ML IH SCH ×4 (04:28→22:01)
[2019-04-26] MEDS: Insulin LISPRO 300 UNITS/3 ML VIAL SQ SCH ×3 (08:21→17:22)
[2019-04-26] MEDS: predniSONE 20 MG TABLET PO SCH (08:24)
[2019-04-26] MEDS: Lactulose Oral Soln 20 GM/30 ML UDC PO SCH (08:25)
[2019-04-26] MEDS: Azithromycin 500 MG in 0.9 % Sodium Chloride 250 ML IVPB SCH (08:26)
[2019-04-26] MEDS: cefTRIAXone 1,000 MG in Water for inj. (sterile) 10 ML IVP SCH (08:26)
[2019-04-26] MEDS ORDERED: Venlafaxine XR (24 HR) 75 MG CAP.ER.24H PO SCH (09:00)
[2019-04-26] MEDS ORDERED: Furosemide 40 MG TABLET PO SCH (09:00)
[2019-04-26] MEDS ORDERED: Venlafaxine XR (24 HR) 150 MG CAP.ER.24H PO SCH (09:00)
[2019-04-26] MEDS ORDERED: Cefdinir 300 MG CAPSULE PO SCH (10:00)
[2019-04-26] MEDS ORDERED: Albumin 25% 25gram/100mL 25 GM/100 ML IV.SOLN IVPB ONE (12:07)
[2019-04-26 14:48] LABS: Glucose,Peritoneal Fluid 195 mg/dL (No Ref Range); LDH,Peritoneal Fluid 26 Units/L (No Ref Range); Total Protein,Peritoneal Fluid < 3.0 g/dL
[2019-04-26 15:24] LABS: RBC,Peritoneal Fluid < 0.002 M/mcL
[2019-04-26 15:44] LABS: Appearance of Peritoneal Fl CLEAR (Clear)
[2019-04-26 16:02] LABS: Basophils,Peritoneal Fluid 0 %; Eosinophils,Peritoneal Fluid 0 %
[2019-04-26 16:16] LABS: Basophils % 0.2 %
[2019-04-26 16:17] LABS: Hematocrit 29.9 % (35.3-44.9); Hemoglobin 7.9 g/dL (11.5-15.4); Immature Granulocytes % 0.4 % (0-4); Lymphocytes # 0.3 K/mcL (0.6-4.6); Lymphocytes % 5.7 %; Mean Corpuscular HGB Conc 26.4 g/dL (31.6-35.5); Mean Corpuscular Hemoglobin 22.2 pg (28.0-33.3); Mean Platelet Volume 10.8 fL (9.4-12.4); Monocytes # 0.2 K/mcL (0.0-1.3); Monocytes % 3.1 %; Red Blood Count 3.56 M/mcL (3.82-4.97); Red Cell Distribution Width 18.5 % (11.5-14.5); Segmented Neutrophils % 90.6 %; White Blood Count 4.9 K/mcL (4.3-11.1)
[2019-04-26 16:18] LABS: Neutrophils # 4.4 K/mcL (1.6-8.9); Platelet Count 91 K/mcL (140-400)
[2019-04-26 16:35] LABS: BUN/Creatinine Ratio 25 (6-26); Blood Urea Nitrogen 24 mg/dL (8-23); Calcium 8.7 mg/dL (8.6-10.3); Carbon Dioxide 32 mEq/L (23-29); Chloride 99 mEq/L (98-107); Glucose 343 mg/dL (70-105); Osmolality,Calculated 298 (280-300); Potassium 4.7 mEq/L (3.5-5.1); Sodium 135 mEq/L (136-145); eGFR For African Americans > 60 (> 60); eGFR For Non-African Americans 58 (> 60)
[2019-04-26 16:54] VITALS: BP 103/62
[2019-04-26 17:01] LABS: Hypochromasia Present (Not Present); Platelet Estimate Slight Decrease (Normal)
== END 2019-04-26 19:15 | disposition home or self-care (01) | DRG 193 ==
LOC: EMEROOARM 09:06 → 3BNU 09:06 → SUATTDRO 12:08 → 3BNU 13:03
PROVIDERS: ADMIT Internal Medicine; ATTEND Internal Medicine